=== PATIENT | male | born 1935 | race Caucasian/White ===

== ENCOUNTER 2022-10-13 16:02 | Inpatient (IN) | payer MEDICARE, SELFPAY ==
--- NOTE | ~2022-10-13 | XR_ITS ---
EXAMINATION: XR CHEST CLINICAL INFORMATION: Hypoxemia COMPARISON: 10/20/2022 TECHNIQUE: Frontal view of the chest was obtained. FINDINGS: Cardiac leads overlie the chest. The lungs are well expanded. Prominent interstitial markings throughout both lungs with patchy opacity at the right base. This is similar to prior. There is improving left basilar aeration. Small left pleural effusion suspected. No pneumothorax. The cardiomediastinal silhouette is unchanged, with a calcified aorta. XR/XR chest 1V IMPRESSION: Small left pleural effusion suspected. Patchy right basilar opacity with prominent interstitial markings. This could represent edema versus infectious/inflammatory process. Improving aeration at the left base.
--- NOTE | ~2022-10-13 | XR_ITS ---
EXAMINATION: XR CHEST CLINICAL INFORMATION: Shortness of breath COMPARISON: None available. TECHNIQUE: Frontal portable view of the chest was obtained. 5:05 PM FINDINGS: Multifocal patchy bilateral airspace opacities concerning for pneumonia. There is no pleural effusion. No pneumothorax. Heart size is normal. Cardiac mediastinal contours normal. No pulmonary vascular congestion. There are vascular calcifications of thoracic aorta. XR/XR chest 1V IMPRESSION: Multifocal patchy bilateral airspace opacities concerning for pneumonia.
--- NOTE | ~2022-10-13 | XR_ITS ---
EXAMINATION: XR CHEST CLINICAL INFORMATION: Post diuresis COMPARISON: Examination of 7 days previous. TECHNIQUE: Frontal view of the chest was obtained. 0750 hours. FINDINGS: Increased opacities observed right mid to basilar region and left mid to basilar regions since the previous evaluation, suspicious for infiltrates. Patchy opacities previously observed in the upper lobes appear to be improved. Linear atelectatic changes observed in the left midlung peripherally. There appears to be blunting in the left costophrenic angle likely representing an effusion. XR/XR chest 1V IMPRESSION: Increased opacities observed predominantly in the mid to basilar regions bilaterally, suspicious for infiltrates. Upper lobe patchy opacities appear to be improved since the prior evaluation. Linear atelectasis in the left midlung. Probable left effusion.
--- NOTE | ~2022-10-13 | CT_ITS ---
EXAMINATION: CT ANGIOGRAM OF THE CHEST WITH AND WITHOUT CONTRAST (CT PULMONARY ANGIOGRAM FOR PE) CLINICAL INFORMATION: Reason for Exam post covid hypoxia COMPARISON: None available. TECHNIQUE: Prior to contrast administration, noncontrast localization images were obtained. Subsequently, multidetector volumetric imaging was performed from the thoracic inlet to below the diaphragms following the administration of 65 mL Omnipaque 350 intravenous contrast. No contrast reaction reported Sagittal, coronal, and MIP oblique sagittal reformatted images were obtained on the CT workstation, uploaded to PACS, and reviewed. This CT examination was performed using dose optimization techniques as appropriate, variously including the following: *Automated exposure control *Adjustment of mA and/or kV according to patient size (this includes techniques or standardized protocols for targeted exams where dose is matched to indication/reason for exam; i.e. extremities or head) *Use of iterative reconstruction technique Total exam dose-length product 517 mGy-cm FINDINGS: QUALITY OF STUDY/CONTRAST BOLUS: Satisfactory. PULMONARY ARTERIES: There is a small pulmonary embolus seen in the right upper lobe (see moore image). THORACIC AORTA: No aneurysm. LUNG: There is subpleural groundglass change and reticulation seen which may represent infiltrates or possibly chronic interstitial disease. Unfortunately, no old imaging exams are available for comparison. PLEURA: No pleural effusion or pneumothorax. MEDIASTINUM: There is mild cardiac enlargement. No pericardial effusion. No hilar or mediastinal lymphadenopathy. No evidence of septal bowing or right heart strain. CORONARY ARTERY CALCIFICATION: Mild CHEST WALL/AXILLA: No axillary or internal mammary lymphadenopathy. OSSEOUS STRUCTURES: Degenerative changes are present throughout the spine. There is fusion of T4 and T5. UPPER ABDOMEN: Probable hepatic steatosis. There is currently a lithiasis without evidence of cholecystitis. The upper abdomen is otherwise unremarkable. No reflux of contrast into the hepatic veins to suggest elevated right heart pressures. CT/CT angio chest PE protocol IMPRESSION: 1. There is a single small pulmonary embolus present in the right upper lobe with no evidence of right heart strain. 2. Other incidental findings as described above including extensive interstitial disease which may be chronic but an acute infection cannot be entirely excluded as no prior imaging is available.. VTE: positive.
[2022-10-13 16:20] VITALS: BP 128/80; PULSE 104; RESP 28; TEMP 37.8; O2SAT 91; BMI 27.7
[2022-10-13 16:32] VITALS: BP 110/55; PULSE 101; RESP 28; O2SAT 90
--- NOTE | 2022-10-13 16:33 | ED_ITS ---
HPI - SOB/Dyspnea General Chief Complaint: Dyspnea Stated Complaint: SOB, hypoxic in low 80's Time Seen by Provider: 10/13/22 16:33 Source: EMS Mode of arrival: EMS Limitations: altered mental status History of Present Illness HPI Narrative: Patient 87 years old with history of atrial fibrillation not on AC, hypertension hyperlipidemi diagnosed with COVID 19 on 10/06 was admitted at [facility] , DNR DNI came [facility] for hypoxia desaturating to 77% at 3 LPM patient was started on Augmentin and Zithromax yesterday. Patient will baseline dementia and confused patient saturating 91% on non rebreather mask Related Data Home Medications Medication Instructions Recorded Confirmed acetaminophen 500 mg tablet 500 mg PO Q6H PRN Pain 10/13/22 10/13/22 albuterol sulfate 2.5 mg/3 mL 2.5 mg inhalation Q6H PRN 10/13/22 10/13/22 (0.083 %) solution for nebulization Shortness Of Breath amoxicillin 875 mg-potassium 1 tab PO BID PNA 10/13/22 10/13/22 clavulanate 125 mg tablet aspirin 81 mg chewable tablet 81 mg PO DAILY 10/13/22 10/13/22 atorvastatin 10 mg tablet 10 mg PO BEDTIME 10/13/22 10/13/22 azithromycin 250 mg tablet 250 mg PO DAILY 10/13/22 10/13/22 cholecalciferol (vitamin D3) 25 25 mcg PO DAILY 10/13/22 10/13/22 mcg (1,000 unit) tablet duloxetine 40 mg capsule,delayed 40 mg PO DAILY 10/13/22 10/13/22 release ferrous sulfate 325 mg (65 mg 325 mg PO DAILY 10/13/22 10/13/22 iron) tablet levocetirizine 5 mg tablet 5 mg PO QPM 10/13/22 10/13/22 lisinopril 5 mg tablet 5 mg PO DAILY 10/13/22 10/13/22 tamsulosin 0.4 mg capsule 0.4 mg PO BEDTIME 10/13/22 10/13/22 Allergies Allergy/AdvReac Type Severity Reaction Status Date / Time No Known Allergies Allergy Verified 10/13/22 16:34 Review of Systems Review of Systems: Yes Unobtainable due to mental condition PMFSH Past Medical History Medical History Atrial fibrillation BPH (benign prostatic hyperplasia) Essential hypertension Mood disorder Spinal stenosis Social History Social History Advance Directives: No Advance Directives Information Provided: No Physical Exam Vital Signs: Vital Signs: Last Vital Signs Temp 97.9 F 10/13/22 23:24 Pulse 106 H 10/13/22 23:24 Resp 21 H 10/13/22 23:24 BP 143/59 H 10/13/22 23:24 Pulse Ox 96 10/13/22 23:24 O2 Del Method Non-Rebreather Ma sk 10/13/22 23:24 O2 Flow Rate 15 10/13/22 23:24 Oxygen Flow Rate 15 10/13/22 16:20 BMI result Body Mass Index 27.7 Appearance: Lethargic confused on non-rebreather oxygen, Eyes: PERRLA ENT: Pharynx normal. Oral Mucosa moist Neck: Normal inspection. Neck supple. CVS: Normal heart rate and rhythm. Pulses normal. Respiratory: Moderate respiratory distress. Equal air entry bilateral, bilateral diffuse coarse crackles Abdomen: Soft and nontender. Bowel sounds are present, no mass palpable, no CVA tenderness Skin: Skin warm and dry. Normal skin color. Normal skin turgor. Extremities: No lower extremity edema. No calf tenderness Neuro: Lethargic and confused moving all 4 extremities Medications Administered Generic Name Dose Route Start Last Admin Trade Name Freq PRN Reason Stop Dose Admin Enoxaparin Sodium 90 mg 10/13/22 21:00 10/13/22 20:12 Enoxaparin Sodium 100 Mg/Ml Syringe 1 mg/kg (90 mg) 90 mg SUBCUT Administration Q12H ALAN Azithromycin 500 mg/ Sodium 250 mls @ 125 mls/hr 10/13/22 21:00 10/13/22 23:27 Chloride IV Infused Q24H ALAN Infusion Sodium Chloride 3 ml 10/14/22 00:00 10/13/22 23:49 0.9 % Sodium Chloride Flush 3 Ml Syringe IVFLUSH 3 ml QSHIFT ALAN Administration Discontinued Medications Generic Name Dose Route Start Last Admin Trade Name Freq PRN Reason Stop Dose Admin Albuterol/Ipratropium 3 ml 10/13/22 16:38 10/13/22 16:55 Albuterol/Iprat 2.5/0.5mg 3 Ml Ampul.Neb INHALE 10/13/22 16:39 3 ml ONCE ONE Administration Dexamethasone Sodium Phosphate 4 mg 10/13/22 17:58 10/13/22 18:24 Dexamethasone Sod Phosphate 4 Mg/Ml Vial IVPUSH 10/13/22 17:59 4 mg ONCE ONE Administration Ceftriaxone Sodium 1 gm/ 50 mls @ 100 mls/hr 10/13/22 17:58 10/13/22 19:12 Sodium Chloride IV 10/13/22 18:27 Infused ONCE ONE Infusion Iohexol 100 ml 10/13/22 18:51 10/13/22 18:52 Iohexol 350 Mg/Ml 100 Ml Infus..Btl IV 10/13/22 18:52 65 ml ONCE ONE Administration Lorazepam 1 mg 10/13/22 19:39 10/13/22 20:12 Lorazepam 2 Mg/Ml Vial IVPUSH 10/13/22 19:40 1 mg ONCE ONE Administration Olanzapine 5 mg 10/13/22 23:09 10/13/22 23:49 Olanzapine 10 Mg Vial IM 10/13/22 23:10 5 mg STAT STA Administration Medical Decision Making Medical Decision Making [facility] [place] Narrative: Patient with significant hypoxia with recent COVID with multifocal pneumonia CTA chest was done which showed PE likely the cause for proxy patient started on Lovenox given multi spectrum antibiotic Rocephin IV fluids suggestion improved after high-flow patient admitted to medical service of further management Differential Diagnosis Differential Diagnoses: The differential diagnosis associated with the presentation includes CHF/PE/multifocal pneumonia/pneumothorax/pneumonia Admission/Observation Consideration of admission/observation: Escalation of care including admission/observation considered Consult Healthcare Provider Management of the patient was discussed with: Hospitalist Lab Data MDM Lab Attestation statement: I reviewed the patient's lab results. 10/13/22 16:41 10/13/22 16:41 Labs: Lab Results 10/13/22 10/13/22 10/13/22 Range/Units 16:41 16:41 16:41 WBC 11.7 H (4.8-10.8) X10*3/uL RBC 4.87 (4.60-5.80) X10*6/uL Hgb 15.9 (14.0-18.0) g/dl Hct 46.6 (42.0-52.0) % MCV 95.7 (80.0-98.0) fL MCH 32.6 (27.0-33.0) pg MCHC 34.1 (31.0-36.0) g/dl RDW 12.6 (11.0-16.0) % Plt Count 374 (160-400) X10*3/uL MPV 9.7 (9.4-12.4) fL Immature Gran % (Auto) 1.2 H (0.0-0.4) % Neut % (Auto) 87.5 H (45-73) % Lymph % (Auto) 7.9 L (20-40) % [place] % (Auto) 2.6 (2-11) % Eos % (Auto) 0.5 (0-4) % Baso % (Auto) 0.3 (0-2) % Lymph # (Auto) 0.9 L (1.2-4.9) X10*3/uL [place] # (Auto) 0.3 (0.1-1.2) X10*3/uL Eos # (Auto) 0.1 (0.0-0.4) X10*3/uL Baso # (Auto) 0.0 (0.0-0.2) X10*3/uL Abs Immat Gran (auto) 0.14 H (0.00-0.03) X10*3/uL Absolute Neuts (auto) 10.2 H (2.0-8.3) x10*3/uL Absolute Nucleated RBC 0.000 (0.0-0.012) X10*3/uL Nucleated RBC % (auto) 0.0 (0.0-0.2) /100WBC PT (11.1-13.3) SEC INR (0.9-1.1) D-Dimer High Sensitivty NG/ML VBG pH (7.32-7.43) VBG pCO2 mmHg VBG pO2 mmHg VBG HCO3 (22-26) mmol/L VBG O2 Saturation % VBG Base Excess mmol/L Sodium 141 (135-145) mmol/L Potassium 3.6 (3.3-5.1) mmol/L Chloride 103 (96-108) mmol/L Carbon Dioxide 22 (22-29) mmol/L Anion Gap 20 (12-20) BUN 26 H (9-16) mg/dL Creatinine 1.35 (0.5-1.4) mg/dL Estim Creat Clear Calc 42.3 Estimated GFR 50 Random Glucose 118 H (60-115) mg/dL Lactic Acid (0.5-2.0) mmol/L Calcium 10.1 (8.4-10.2) mg/dL Magnesium 1.9 (1.6-2.6) mg/dL Total Bilirubin 1.2 H (0.0-1.0) mg/dL AST 75 H (5-37) U/L ALT 25 (0-40) U/L Alkaline Phosphatase 87 (39-117) U/L Troponin I High Sens 11.5 (<3.5-35.0) ng/L B-Natriuretic Peptide (<100) pg/mL Total Protein 7.5 (6.5-8.0) g/dL Albumin 3.2 L (3.5-5.0) g/dL COVID-19 (PRABHJOT) (Negative) COVID-19 Clin Com 10/13/22 10/13/22 10/13/22 Range/Units 16:41 16:41 17:01 WBC (4.8-10.8) X10*3/uL RBC (4.60-5.80) X10*6/uL Hgb (14.0-18.0) g/dl Hct (42.0-52.0) % MCV (80.0-98.0) fL MCH (27.0-33.0) pg MCHC (31.0-36.0) g/dl RDW (11.0-16.0) % Plt Count (160-400) X10*3/uL MPV (9.4-12.4) fL Immature Gran % (Auto) (0.0-0.4) % Neut % (Auto) (45-73) % Lymph % (Auto) (20-40) % [place] % (Auto) (2-11) % Eos % (Auto) (0-4) % Baso % (Auto) (0-2) % Lymph # (Auto) (1.2-4.9) X10*3/uL [place] # (Auto) (0.1-1.2) X10*3/uL Eos # (Auto) (0.0-0.4) X10*3/uL Baso # (Auto) (0.0-0.2) X10*3/uL Abs Immat Gran (auto) (0.00-0.03) X10*3/uL Absolute Neuts (auto) (2.0-8.3) x10*3/uL Absolute Nucleated RBC (0.0-0.012) X10*3/uL Nucleated RBC % (auto) (0.0-0.2) /100WBC PT (11.1-13.3) SEC INR (0.9-1.1) D-Dimer High Sensitivty NG/ML VBG pH (7.32-7.43) VBG pCO2 mmHg VBG pO2 mmHg VBG HCO3 (22-26) mmol/L VBG O2 Saturation % VBG Base Excess mmol/L Sodium (135-145) mmol/L Potassium (3.3-5.1) mmol/L Chloride (96-108) mmol/L Carbon Dioxide (22-29) mmol/L Anion Gap (12-20) BUN (9-16) mg/dL Creatinine (0.5-1.4) mg/dL Estim Creat Clear Calc Estimated GFR Random Glucose (60-115) mg/dL Lactic Acid 2.5 H* (0.5-2.0) mmol/L Calcium (8.4-10.2) mg/dL Magnesium (1.6-2.6) mg/dL Total Bilirubin (0.0-1.0) mg/dL AST (5-37) U/L ALT (0-40) U/L Alkaline Phosphatase (39-117) U/L Troponin I High Sens (<3.5-35.0) ng/L B-Natriuretic Peptide 97 (<100) pg/mL Total Protein (6.5-8.0) g/dL Albumin (3.5-5.0) g/dL COVID-19 (PRABHJOT) Negative (Negative) COVID-19 Clin Com See Note 10/13/22 10/13/22 10/13/22 Range/Units 17:01 17:02 17:07 WBC (4.8-10.8) X10*3/uL RBC (4.60-5.80) X10*6/uL Hgb (14.0-18.0) g/dl Hct (42.0-52.0) % MCV (80.0-98.0) fL MCH (27.0-33.0) pg MCHC (31.0-36.0) g/dl RDW (11.0-16.0) % Plt Count (160-400) X10*3/uL MPV (9.4-12.4) fL Immature Gran % (Auto) (0.0-0.4) % Neut % (Auto) (45-73) % Lymph % (Auto) (20-40) % [place] % (Auto) (2-11) % Eos % (Auto) (0-4) % Baso % (Auto) (0-2) % Lymph # (Auto) (1.2-4.9) X10*3/uL [place] # (Auto) (0.1-1.2) X10*3/uL Eos # (Auto) (0.0-0.4) X10*3/uL Baso # (Auto) (0.0-0.2) X10*3/uL Abs Immat Gran (auto) (0.00-0.03) X10*3/uL Absolute Neuts (auto) (2.0-8.3) x10*3/uL Absolute Nucleated RBC (0.0-0.012) X10*3/uL Nucleated RBC % (auto) (0.0-0.2) /100WBC PT 16.5 H (11.1-13.3) SEC INR 1.4 H (0.9-1.1) D-Dimer High Sensitivty 1706 NG/ML VBG pH 7.55 H (7.32-7.43) VBG pCO2 25 mmHg VBG pO2 85 mmHg VBG HCO3 22 (22-26) mmol/L VBG O2 Saturation 98.0 % VBG Base Excess 2.1 mmol/L Sodium (135-145) mmol/L Potassium (3.3-5.1) mmol/L Chloride (96-108) mmol/L Carbon Dioxide (22-29) mmol/L Anion Gap (12-20) BUN (9-16) mg/dL Creatinine (0.5-1.4) mg/dL Estim Creat Clear Calc Estimated GFR Random Glucose (60-115) mg/dL Lactic Acid (0.5-2.0) mmol/L Calcium (8.4-10.2) mg/dL Magnesium (1.6-2.6) mg/dL Total Bilirubin (0.0-1.0) mg/dL AST (5-37) U/L ALT (0-40) U/L Alkaline Phosphatase (39-117) U/L Troponin I High Sens (<3.5-35.0) ng/L B-Natriuretic Peptide (<100) pg/mL Total Protein (6.5-8.0) g/dL Albumin (3.5-5.0) g/dL COVID-19 (PRABHJOT) (Negative) COVID-19 Clin Com Independent Interpretation I performed an independent interpretation of an: EKG Interpretation: Atrial fibrillation with ventricular rate of 96 beats per minute LVH left axis deviation no acute ST elevation no acute ischemia Critical Care Time Critical Care Time Critical Care Time: Yes Total Critical Care Time: 65 Attestation: The patient was critically ill with a high probability of imminent or life threatening deterioration. I spent greater than 70 minutes of discontinuous time evaluating the patient,delivering critical care at the bedside, discussing and evaluating pertinent data with consultants. Critical care time does not include time spent performing separately billable procedures or teaching. Total time spent performing critical care was 65 minutes. Discharge Plan Discharge Clinical Impression: Pulmonary embolism, COVID-19, Pneumonia, Acute hypoxemic respiratory failure Patient Disposition: Admitted As Inpatient Interventions: Admission Worksheet (ED) Last Done: 10/13/22 22:27 Discharge Date/Time: 10/13/22 22:28
--- NOTE | 2022-10-13 16:35 | ECG_ITS ---
Test Reason : AFIB Blood Pressure : / mmHG Vent. Rate : 096 BPM Atrial Rate : 000 BPM P-R Int : 000 ms QRS Dur : 126 ms QT Int : 354 ms P-R-T Axes : 000 -38 130 degrees QTc Int : 447 ms Atrial fibrillation with premature ventricular or aberrantly conducted complexes Left axis deviation Non-specific intra-ventricular conduction block T wave abnormality, consider lateral ischemia Abnormal ECG No previous ECGs available Referred By: Kevon Mancera Electronically Signed By:JORGE FAROOQ
[2022-10-13 16:47] LABS: MANUAL DIFF FLAG NO
[2022-10-13 16:54] LABS: Basophils Percent Auto 0.3 % (0-2); Eosinophils Absolute Auto 0.1 X10*3/uL (0.0-0.4); Eosinophils Percent Auto 0.5 % (0-4); Hematocrit 46.6 % (42.0-52.0); Hemoglobin 15.9 g/dl (14.0-18.0); Imm Gran Abs Auto 0.14 X10*3/uL (0.00-0.03); Imm Gran Pct Auto 1.2 % (0.0-0.4); Lymphocytes Absolute Auto 0.9 X10*3/uL (1.2-4.9); Lymphocytes Percent Auto 7.9 % (20-40); Mean Corpuscular HGB Conc 34.1 g/dl (31.0-36.0); Mean Corpuscular Hemoglobin 32.6 pg (27.0-33.0); Mean Corpuscular Volume 95.7 fL (80.0-98.0); Mean Platelet Volume 9.7 fL (9.4-12.4); Monocytes Absolute Auto 0.3 X10*3/uL (0.1-1.2); Monocytes Percent Auto 2.6 % (2-11); Neutrophils Absolute Auto 10.2 x10*3/uL (2.0-8.3); Neutrophils Percent Auto 87.5 % (45-73); Platelet Count 374 X10*3/uL (160-400); Red Blood Count 4.87 X10*6/uL (4.60-5.80); Red Cell Distribution Width 12.6 % (11.0-16.0); White Blood Count 11.7 X10*3/uL (4.8-10.8)
[2022-10-13] MEDS: Albuterol/Iprat 2.5/0.5MG 3 ML AMPUL.NEB INHALE (16:55)
[2022-10-13 16:56] VITALS: PULSE 106; RESP 24; O2SAT 94
[2022-10-13 17:04] LABS: Alanine Aminotransferase 25 U/L (0-40); Albumin Level 3.2 g/dL (3.5-5.0); Alkaline Phosphatase 87 U/L (39-117); Anion Gap 20 (12-20); Aspartate Amino Transferase 75 U/L (5-37); Bilirubin Total 1.2 mg/dL (0.0-1.0); Blood Urea Nitrogen 26 mg/dL (9-16); Calcium 10.1 mg/dL (8.4-10.2); Carbon Dioxide 22 mmol/L (22-29); Chloride 103 mmol/L (96-108); Creatinine Clr Calc Pharmacy 42.3; Estimated Glomerular Filt Rate 50; Glucose Random 118 mg/dL (60-115); Magnesium 1.9 mg/dL (1.6-2.6); Potassium 3.6 mmol/L (3.3-5.1); Sodium 141 mmol/L (135-145); Total Protein 7.5 g/dL (6.5-8.0)
[2022-10-13 17:09] LABS: B Type Natriuretic Peptide 97 pg/mL (<100)
[2022-10-13 17:10] LABS: COVID-19 Test Negative (Negative); IDNOW Serial# 08D9AD1C
[2022-10-13 17:11] LABS: Troponin-I High Sensitivity 11.5 ng/L (<3.5-35.0)
[2022-10-13 17:17] LABS: VBG Base Excess 2.1 mmol/L; VBG HCO3 22 mmol/L (22-26); VBG pCO2 25 mmHg; VBG pH 7.55 (7.32-7.43); VBG pO2 85 mmHg
[2022-10-13 17:18] LABS: Venous Blood Gas Refer to POC result
--- NOTE | 2022-10-13 17:18 | PC.NURSE ---
coming from [facility] s/p covid with increasing dyspnea and low oxygen. iv established, labs drawn and sent. afib on monitor with history of afib. dnr/dni. pt at 99% on non-rebreather respiratory at bedside
[2022-10-13 17:25] LABS: INTERNATIONAL NORM RATIO 1.4 (0.9-1.1); Prothrombin Time 16.5 SEC (11.1-13.3)
[2022-10-13 17:27] LABS: D Dimer High Sensitivity 1706 NG/ML
[2022-10-13 17:34] LABS: Lactic Acid 2.5 mmol/L (0.5-2.0)
--- NOTE | 2022-10-13 17:48 | PHA.MEDREC ---
Pharmacy Consult ? Medication Reconciliation Pharmacy has completed the medication reconciliation. Patient came from [facility] with medication list. Tanisha Aguilar, JakeD
[2022-10-13 18:22] VITALS: BP 125/69; PULSE 96; RESP 24; TEMP 37.4; O2SAT 95
--- NOTE | 2022-10-13 18:22 | PC.NURSE ---
incontinent of urine, linens changed. pt pulling at mask in room, sliding down in the bed. multiple reattempts made for pt to keep mask on.
[2022-10-13] MEDS: dexAMETHasone sod phosphate 4 MG/ML VIAL IVPUSH (18:24)
[2022-10-13] MEDS: cefTRIAXone sodium 1 GM in 0.9 % Sodium Chloride 50 ML IV (18:24)
[2022-10-13] MEDS: iohexoL 350 MG/ML 100 ML INFUS..BTL IV (18:52)
[2022-10-13 19:09] LABS: Reflex Lactate? Lactic Acid Added
[2022-10-13 20:05] VITALS: BP 132/83; PULSE 96; RESP 20; TEMP 36.9; O2SAT 97
--- NOTE | 2022-10-13 20:07 | PM.IMHP ---
History of Present Illness Date of Service: 10/13/22 Chief Complaint: Hypoxia This is a 87-year-old male with pertinent history of atrial fibrillation not on anticoagulation, BPH, essential hypertension, mixed hyperlipidemia who was sent to the emergency department for evaluation of hypoxemia. Patient was admitted with COVID-19 hypoxemia on 10/06 to [facility] and was transferred to skilled nursing for increased weakness. Patient was found to be hypoxemic at skilled nursing and was sent to the ER for further evaluation. Patient is a poor historian and unable to provide any history. History obtained from ER provider and chart review. Patient had a cough and low-grade fever and was started on Augmentin and Zithromax yesterday. He denies any complaints at the time of my evaluation. Does have baseline dementia. Unable to obtain review of systems. Review of Systems Review of Systems: Yes Unobtainable due to mental status [facility] Medical History Atrial fibrillation BPH (benign prostatic hyperplasia) Essential hypertension Mood disorder Spinal stenosis Pertinent family history: Unable to obtain and not significant due to age Social History Advance Directives: No Advance Directives Information Provided: No Meds Allergies Allergy/AdvReac Type Severity Reaction Status Date / Time No Known Allergies Allergy Verified 10/13/22 16:34 Active Medications: Current Medications Acetaminophen (Acetaminophen 325 Mg Tablet) 650 mg PO Q6H PRN PRN Reason: Pain, Mild (Pain Scale 1-3) Enoxaparin Sodium (Enoxaparin Sodium 100 Mg/Ml Syringe) 90 mg 1 mg/kg (90 mg) SUBCUT Q12H [facility] Melatonin (Melatonin 3 Mg Tablet) 6 mg PO BEDTIME PRN PRN Reason: Insomnia Ondansetron HCl (Ondansetron Hcl 4 Mg/2 Ml Vial) 4 mg IVPUSH Q8H PRN PRN Reason: Nausea and Vomiting Pharmacy Consult (Consult Rx Perform Med Rec) 1 each MISCELLANE ONCE PRN PRN Reason: Consult order Sodium Chloride (0.9 % Sodium Chloride Flush 3 Ml Syringe) 3 ml IVFLUSH QSHIFT [facility] Home Medications Medication Instructions Recorded Confirmed Last Taken Type acetaminophen 500 mg tablet 500 mg PO Q6H PRN Pain 10/13/22 10/13/22 10/08/22 History albuterol sulfate 2.5 mg/3 mL 2.5 mg inhalation Q6H PRN 10/13/22 10/13/22 Unknown History (0.083 %) solution for nebulization Shortness Of Breath amoxicillin 875 mg-potassium 1 tab PO BID PNA 10/13/22 10/13/22 10/13/22 History clavulanate 125 mg tablet aspirin 81 mg chewable tablet 81 mg PO DAILY 10/13/22 10/13/22 10/13/22 History atorvastatin 10 mg tablet 10 mg PO BEDTIME 10/13/22 10/13/22 10/12/22 History azithromycin 250 mg tablet 250 mg PO DAILY 10/13/22 10/13/22 Unknown History cholecalciferol (vitamin D3) 25 25 mcg PO DAILY 10/13/22 10/13/22 10/13/22 History mcg (1,000 unit) tablet duloxetine 40 mg capsule,delayed 40 mg PO DAILY 10/13/22 10/13/22 10/13/22 History release ferrous sulfate 325 mg (65 mg 325 mg PO DAILY 10/13/22 10/13/22 10/13/22 History iron) tablet levocetirizine 5 mg tablet 5 mg PO QPM 10/13/22 10/13/22 10/12/22 History lisinopril 5 mg tablet 5 mg PO DAILY 10/13/22 10/13/22 10/13/22 History tamsulosin 0.4 mg capsule 0.4 mg PO BEDTIME 10/13/22 10/13/22 10/12/22 History Physical Exam Vital Signs and Narrative: Vital Signs: Last Vital Signs Temp 98.4 F 10/13/22 20:05 Pulse 96 10/13/22 20:05 Resp 20 10/13/22 20:05 BP 132/83 10/13/22 20:05 Pulse Ox 97 10/13/22 20:05 O2 Del Method Oxymask 10/13/22 20:05 O2 Flow Rate 15 10/13/22 20:05 Oxygen Flow Rate 10/13/22 16:20 BMI result Body Mass Index 27.7 Elderly male lying in bed in mild distress on supplemental oxygen Neck supple, no JVD Irregularly irregular, S1-S2 heard Bilateral crackles Abdomen soft nontender, no guarding, no rigidity Patient is awake, alert and oriented to self, disoriented to place, time and person ; no focal motor deficit Psych: Normal mood Results Labs 10/13/22 16:41 10/13/22 16:41 Labs: Laboratory Results - last 24 hr 10/13/22 10/13/22 10/13/22 16:41 16:41 16:41 MCV 95.7 MCH 32.6 MCHC 34.1 RDW 12.6 Plt Count 374 MPV 9.7 Immature Gran % (Auto) 1.2 H Neut % (Auto) 87.5 H Lymph % (Auto) 7.9 L [place] % (Auto) 2.6 Eos % (Auto) 0.5 Baso % (Auto) 0.3 Lymph # (Auto) 0.9 L [place] # (Auto) 0.3 Eos # (Auto) 0.1 Baso # (Auto) 0.0 Abs Immat Gran (auto) 0.14 H Absolute Neuts (auto) 10.2 H Absolute Nucleated RBC 0.000 Nucleated RBC % (auto) 0.0 PT INR D-Dimer High Sensitivty VBG pH VBG pCO2 VBG pO2 VBG HCO3 VBG O2 Saturation VBG Base Excess Anion Gap 20 Estim Creat Clear Calc 42.3 Estimated GFR 50 Random Glucose 118 H Lactic Acid Calcium 10.1 Magnesium 1.9 Total Bilirubin 1.2 H AST 75 H ALT 25 Alkaline Phosphatase 87 B-Natriuretic Peptide Total Protein 7.5 Albumin 3.2 L COVID-19 (PRABHJOT) Negative COVID-19 Clin Com See Note 10/13/22 10/13/22 10/13/22 16:41 17:01 17:01 MCV MCH MCHC RDW Plt Count MPV Immature Gran % (Auto) Neut % (Auto) Lymph % (Auto) [place] % (Auto) Eos % (Auto) Baso % (Auto) Lymph # (Auto) [place] # (Auto) Eos # (Auto) Baso # (Auto) Abs Immat Gran (auto) Absolute Neuts (auto) Absolute Nucleated RBC Nucleated RBC % (auto) PT INR D-Dimer High Sensitivty 1706 VBG pH VBG pCO2 VBG pO2 VBG HCO3 VBG O2 Saturation VBG Base Excess Anion Gap Estim Creat Clear Calc Estimated GFR Random Glucose Lactic Acid 2.5 H* Calcium Magnesium Total Bilirubin AST ALT Alkaline Phosphatase B-Natriuretic Peptide 97 Total Protein Albumin COVID-19 (PRABHJOT) COVID-19 Clin Com 10/13/22 10/13/22 17:02 17:07 MCV MCH MCHC RDW Plt Count MPV Immature Gran % (Auto) Neut % (Auto) Lymph % (Auto) [place] % (Auto) Eos % (Auto) Baso % (Auto) Lymph # (Auto) [place] # (Auto) Eos # (Auto) Baso # (Auto) Abs Immat Gran (auto) Absolute Neuts (auto) Absolute Nucleated RBC Nucleated RBC % (auto) PT 16.5 H INR 1.4 H D-Dimer High Sensitivty VBG pH 7.55 H VBG pCO2 25 VBG pO2 85 VBG HCO3 22 VBG O2 Saturation 98.0 VBG Base Excess 2.1 Anion Gap Estim Creat Clear Calc Estimated GFR Random Glucose Lactic Acid Calcium Magnesium Total Bilirubin AST ALT Alkaline Phosphatase B-Natriuretic Peptide Total Protein Albumin COVID-19 (PRABHJOT) COVID-19 Clin Com Imaging Radiologist's Impressions: Impressions Chest X-Ray 10/13/22 17:15 IMPRESSION: Multifocal patchy bilateral airspace opacities concerning for pneumonia. Chest CTA 10/13/22 19:01 IMPRESSION: 1. There is a single small pulmonary embolus present in the right upper lobe with no evidence of right heart strain. 2. Other incidental findings as described above including extensive interstitial disease which may be chronic but an acute infection cannot be entirely excluded as no prior imaging is available.. VTE: positive. Assessment and Plan (1) Hypoxia: Status: Acute Plan This is a 87-year-old male with pertinent history of atrial fibrillation not on anticoagulation, BPH, essential hypertension, mixed hyperlipidemia who was sent to the emergency department for evaluation of hypoxemia. #. Acute hypoxemic respiratory failure due to acute non massive PE and CAP: Will admit patient with supplemental oxygen. Initiating therapeutic Lovenox. Initiating empiric antibiotics for concern of bacterial superinfection in a patient with recent COVID. Obtaining sputum culture and blood culture. Echo pending #. Mood disorder. Continue home mood stabilizers #. Paroxysmal AFib. Rate controlled in the ER. #. BPH: On Flomax #. Essential hypertension. Continue home antihypertensives #. Mixed hyperlipidemia. On statin Med rec pending DVT prophylaxis: Therapeutic Lovenox DNR/DNI Admit as inpatient and will require two night minimum hospital stay for supplemental oxygen, IV Lovenox and IV antibiotics Time Spent With Patient Time: Total time managing care of this patient today ____ minutes. Quality Stroke Does the patient have a stroke diagnosis?: No VTE Prior VTE?: No VTE Risk Level:: Medical - moderate - high VTE Device Contraindication: Treatment Not Indicated VTE Drug Contraindication: N/A - Med Ordered
[2022-10-13] MEDS: Enoxaparin Sodium 100 MG/ML SYRINGE 90 MG SUBCUT (20:12)
[2022-10-13] MEDS: LORazepam 2 MG/ML VIAL 1 MG IVPUSH (20:12)
[2022-10-13 20:24] LABS: ~Lactic Acid-LAB USE ONLY 1.7 mmol/L (0.5-2.0)
[2022-10-13] MEDS: Azithromycin 500 MG in 0.9 % Sodium Chloride 250 ML 125 MG IV (20:27)
--- NOTE | 2022-10-13 21:39 | PC.NURSE ---
patient report was given to klaudia patient will be going with the transporter and the nurse due to patient is on a nonrebreather
--- NOTE | 2022-10-13 23:05 | PC.NURSE ---
Addendum entered by Anjali Salter RN 10/14/22 03:58: At approx 0155 pt noted to be maintaining O2 sat of 88% on 15L NRB. MD made aware of pt condition, with reiteration of R lung PE and pt being s/p covid. No new orders at this time. Will continue with current plan of care. Original Note: Pt to inpatient unit on 15L nonrebreather and right wrist soft restraint from ED. O2 sat 93-94%. Pt agitated and restless - when restraint removed pt attempted to remove mask. Nursing assessment/interventions for Non-Behavioral Restraint form not obtained from ED RN - MD made aware, this RN was told to remove soft restraint and to medicate pt with 5mg Zyprexa IM. Pt medicated per MAY and restraint removed.
[2022-10-13 23:24] VITALS: BP 143/59; PULSE 106; RESP 21; TEMP 36.6; O2SAT 96
[2022-10-13] MEDS: 0.9 % Sodium Chloride Flush 3 ML SYRINGE IVFLUSH (23:49)
[2022-10-13] MEDS: OLANZapine 10 MG VIAL 5 MG IM (23:49)
[2022-10-14] VITALS (9 sets, daily range): BP systolic 107–150; BP diastolic 72–85; PULSE 72–103; RESP 18–91; TEMP 36.1–36.7; O2SAT 90–94; BMI 27.5
--- NOTE | 2022-10-14 05:35 | PC.RT ---
Pt remains on NRB overnight sats 89-94%. ABG ordered, multiple attempts ABG unobtainable. aware.
--- NOTE | 2022-10-14 07:00 | CA_ITS ---
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 The visually estimated ejection fraction is between 15-20%. - The basal inferolateral segment is akinetic. - There is moderately decreased right ventricular systolic function. - The left atrium is moderately dilated. - No obvious valvular pathology seen on this study. Findings Procedure Information Contrast agent, definity, is being given per protocol without apparent complications. The quality of the study was technically difficult, despite the use of contrast, endocardial definition remains poor, and apical images are suboptimal for definitive comment. The study quality is limited by patients body habitus and lung artifact. Left Ventricle Normal left ventricular cavity size. There is normal left ventricular wall thickness. The left ventricular systolic function is severely decreased. The visually estimated ejection fraction is between 15-20%. Regional wall motion abnormalities can not be excluded due to suboptimal endocardial definition. There is severe global hypokinesis. Diastolic function is indeterminate on the basis of available data. Wall Motion Rest Echo Findings The basal inferolateral segment is akinetic. Right Ventricle The right ventricle was not well visualized. Mildly increased right ventricular cavity size. There is moderately decreased right ventricular systolic function. Atria The left atrium is moderately dilated. The right atrium was not well visualized. Aortic Valve There is a normal trileaflet aortic valve. There is mild calcification of the aortic valve. There is no aortic valve stenosis. There is mild aortic valve regurgitation. Mitral Valve The mitral valve appears normal. There is mild mitral valve regurgitation. There is no mitral valve stenosis. Pulmonic Valve The pulmonic valve is likely normal. Tricuspid Valve Normal tricuspid valve structure. There is mild tricuspid valve regurgitation. Great Vessels The asc aorta is normal in size. Venous The inferior vena cava is normal in size and collapses greater than 50% with inspiration. Pericardium/Pleural There is no evidence of pericardial effusion. Prior Study Comparison No prior study available for comparison. Recommendations, Care & Conclusions No obvious valvular pathology seen on this study. Measurements 2D Linear Measurements IVSd: 0.99 0.6-0.9/0.6-1.0 cm LVIDd: 5.30 3.9-5.3/4.2-5.9 cm LVIDd Index: 2.48 2.4-3.2/2.2-3.1 cm/m2 LVIDs: 4.80 2.0-3.6 cm LVPWd: 0.81 0.7-1.1 cm LA Diam: 4.70 2.7-3.8/3.0-4.0 cm LAIDs Index: 2.20 1.5-2.3 cm/m2 LV Mass: 216.92 67-162/88-224 g LV Mass Index: 101.37 43-95/49-115 g/m2 LVOT Diam: 2.40 3.0+(-)1.3 cm Mitral Valve MV Pk E: 0.46 Aortic Valve AoV Pk Clifton: 0.79 AoV Pk Grad: 2.00 GISSELLE: 3.73 LVOT LVOT Pk Clifton: 0.65 LVOT Mn Clifton: 0.45 LVOT VTI: 0.11 LVOT Pk Grad: 2.00 LVOT Mn Grad: 1.00 LVOT Diam: 2.40 LVOT Area: 4.52 Diastolic Function MV Pk E: 0.46 Right Ventricle TAPSE (mm): 9.10 Tricuspid Valve TR Pk Clifton: 2.78 TR Pk Grad: 31.00 RA Press: 3.00 RVSP: 34.00 Great Vessels Aorta Sinus of Valsalva: 3.90 2.0-3.5 cm Ao Asc: 3.80 2.1-3.4 cm Pulmonary Valve PV Pk Clifton: 0.94 Peak PV Grad: 4.00 Updated in Other Vendor System with Status of Final Sudheer Thomason MD electronically signed on 10/14/2022 11:19:22 AM with status of Final
[2022-10-14 07:52] LABS: MANUAL DIFF FLAG NO
[2022-10-14 07:56] LABS: Venous Blood Gas Refer to POC result
[2022-10-14 07:57] LABS: Basophils Percent Auto 0.1 % (0-2); Eosinophils Percent Auto 0.1 % (0-4); Hematocrit 48.5 % (42.0-52.0); Hemoglobin 16.2 g/dl (14.0-18.0); Imm Gran Abs Auto 0.11 X10*3/uL (0.00-0.03); Imm Gran Pct Auto 0.8 % (0.0-0.4); Lymphocytes Percent Auto 7.3 % (20-40); Mean Corpuscular HGB Conc 33.4 g/dl (31.0-36.0); Mean Corpuscular Hemoglobin 32.7 pg (27.0-33.0); Monocytes Absolute Auto 0.3 X10*3/uL (0.1-1.2); Neutrophils Absolute Auto 12.8 x10*3/uL (2.0-8.3); Neutrophils Percent Auto 89.7 % (45-73); Platelet Count 330 X10*3/uL (160-400); Red Blood Count 4.95 X10*6/uL (4.60-5.80); Red Cell Distribution Width 12.7 % (11.0-16.0); White Blood Count 14.2 X10*3/uL (4.8-10.8)
[2022-10-14 07:58] LABS: VBG Base Excess -2.8 mmol/L; VBG HCO3 23 mmol/L (22-26); VBG pCO2 46 mmHg; VBG pH 7.31 (7.32-7.43); VBG pO2 63 mmHg
[2022-10-14 08:12] LABS: Anion Gap 17 (12-20); Blood Urea Nitrogen 23 mg/dL (9-16); Calcium 9.5 mg/dL (8.4-10.2); Carbon Dioxide 22 mmol/L (22-29); Chloride 106 mmol/L (96-108); Creatinine Clr Calc Pharmacy 51.4; Estimated Glomerular Filt Rate > 60; Glucose Random 114 mg/dL (60-115); Potassium 4.1 mmol/L (3.3-5.1); Sodium 141 mmol/L (135-145)
[2022-10-14] MEDS: methylPREDNISolone Sod Succ 125 MG/2 ML VIAL 60 MG IVPUSH ×2 (09:17→21:46)
[2022-10-14] MEDS: 0.9 % Sodium Chloride Flush 3 ML SYRINGE IVFLUSH (09:18)
--- NOTE | 2022-10-14 09:35 | MHC.CM.PN ---
Addendum entered by Azucena Bridges 10/14/22 13:56: Pts and son (both HCP's) met with this CM, pts son reports that [facility] will not hold the bed without a payment of $450/day, so he is not a bed hold. Pts family report that they spoke with MD and plan for pt is that if he does not improve, they would like to keep him comfortable (CLOCK AND WATCH HANDS DIPPER) and do not want extreme measures taken, stating that he would not have wanted that. Pts son also has a with advanced Alzheimer's disease who needs around the clock care. Emotional support provided to pts son and . Pt remains on hi-flow O2 and is obtunded. CM will continue to follow. Addendum entered by Azucena Bridges 10/14/22 10:13: Copy of HCP received and now on file. Original Note: IMM 10/14. Pt admitted with dx: hypoxia. Pt came here from [facility], he was there for STR. Prior to being at [facility], pt was at [facility], and prior to that pt was living at home with his Becky. Pt is a poor historian with baseline dementia, so intake done with pts Becky ([phone]), who was not aware that her was at [facility] prior to this CM's phone call. Becky reports that her has significantly declined in the past 2 weeks since having covid/pneumonia. Becky reports that her was using a walker 2 weeks ago and is now unable to walk, needing a wheelchair. Becky states she was very hopeful that she could bring her home after STR at [facility], but is realizing that she cannot take care of his needs with his recent and rapid decline. Becky states she will be looking for LTC for her (and would like him in a facility close to her in [place]. Becky states the pt has a HCP on file at his PCP's office, this CM called to request a copy be faxed to [facility]. PCP: Eulalio Mcdermott ([facility]) Covid vax: x 3
--- NOTE | 2022-10-14 12:26 | HO.PM.IMPN ---
Subjective Subjective Date of Service: 10/14/22 Interval History: obtunded Review of Systems Review of Systems: Yes Unobtainable due to mental condition Physical Exam Vital Signs: Vital Signs: Last Vital Signs Temp 98.0 F 10/14/22 10:57 Pulse 90 10/14/22 10:57 Resp 20 10/14/22 10:57 BP 141/80 H 10/14/22 10:57 Pulse Ox 94 10/14/22 10:57 O2 Del Method Non-Rebreather Ma 10/14/22 10:57 O2 Flow Rate 15 10/14/22 10:57 Oxygen Flow Rate 15 10/13/22 16:20 BMI result Body Mass Index 27.5 ill appearing, obtunded, tachypneic, accessory muscle used, crackles bilateral Objective Data Active Medications Acetaminophen (Acetaminophen 325 Mg Tablet) 650 mg PO Q6H PRN PRN Reason: Pain, Mild (Pain Scale 1-3) Aspirin (Aspirin 81 Mg Tab.Chew) 81 mg PO DAILY [facility] Last Admin: 10/14/22 09:19 Dose: Not Given Documented By: LOREE Non-Admin Reason: pt. too tired Atorvastatin Calcium (Atorvastatin Calcium 10 Mg Tablet) 10 mg PO BEDTIME [facility] Duloxetine HCl (Duloxetine Hcl 20 Mg Capsule.) 40 mg PO DAILY [facility] Last Admin: 10/14/22 09:19 Dose: Not Given Documented By: LOREE Non-Admin Reason: pt. too tired Enoxaparin Sodium (Enoxaparin Sodium 100 Mg/Ml Syringe) 90 mg 1 mg/kg (90 mg) SUBCUT Q12H [facility] Ferrous Sulfate (Ferrous Sulfate 324 Mg Tablet.) 325 mg PO DAILY [facility] Last Admin: 10/14/22 09:19 Dose: Not Given Documented By: LOREE Non-Admin Reason: pt. too tired Ceftriaxone Sodium 1 gm/ (Sodium Chloride) 50 mls @ 100 mls/hr IV Q24H [facility] Azithromycin 500 mg/ Sodium (Chloride) 250 mls @ 125 mls/hr IV Q24H [facility] Last Infusion: 10/13/22 23:27 Dose: 0 mls/hr Documented By: ZEENAT Lisinopril (Lisinopril 5 Mg Tablet) 5 mg PO DAILY [facility]; Protocol Last Admin: 10/14/22 09:19 Dose: Not Given Documented By: LOREE Non-Admin Reason: pt. too tired Melatonin (Melatonin 3 Mg Tablet) 6 mg PO BEDTIME PRN PRN Reason: Insomnia Methylprednisolone Sodium Succinate (Methylprednisolone Sod Succ 125 Mg/2 Ml Vial) 60 mg IVPUSH BID [facility] Last Admin: 10/14/22 09:17 Dose: 60 mg Documented By: LOREE Ondansetron HCl (Ondansetron Hcl 4 Mg/2 Ml Vial) 4 mg IVPUSH Q8H PRN PRN Reason: Nausea and Vomiting Pharmacy Consult (Consult Rx Perform Med Rec) 1 each MISCELLANE ONCE PRN PRN Reason: Consult order Sodium Chloride (0.9 % Sodium Chloride Flush 3 Ml Syringe) 3 ml IVFLUSH QSHIFT [facility] Last Admin: 10/14/22 09:18 Dose: 3 ml Documented By: LOREE Tamsulosin HCl (Tamsulosin Hcl 0.4 Mg Capsule) 0.4 mg PO BEDTIME [facility] Labs 10/14/22 07:45 10/14/22 07:45 Labs: Laboratory Results - last 24 hr 10/13/22 10/13/22 10/13/22 16:41 16:41 16:41 MCV 95.7 MCH 32.6 MCHC 34.1 RDW 12.6 Plt Count 374 MPV 9.7 Immature Gran % (Auto) 1.2 H Neut % (Auto) 87.5 H Lymph % (Auto) 7.9 L [place] % (Auto) 2.6 Eos % (Auto) 0.5 Baso % (Auto) 0.3 Lymph # (Auto) 0.9 L [place] # (Auto) 0.3 Eos # (Auto) 0.1 Baso # (Auto) 0.0 Abs Immat Gran (auto) 0.14 H Absolute Neuts (auto) 10.2 H Absolute Nucleated RBC 0.000 Nucleated RBC % (auto) 0.0 PT INR D-Dimer High Sensitivty VBG pH VBG pCO2 VBG pO2 VBG HCO3 VBG O2 Saturation VBG Base Excess Anion Gap 20 Estim Creat Clear Calc 42.3 Estimated GFR 50 Random Glucose 118 H Lactic Acid Lactic Acid F/U @ 2Hr Calcium 10.1 Magnesium 1.9 Total Bilirubin 1.2 H AST 75 H ALT 25 Alkaline Phosphatase 87 B-Natriuretic Peptide Total Protein 7.5 Albumin 3.2 L COVID-19 (PRABHJOT) Negative COVID-19 [employer] Com See Note 10/13/22 10/13/22 10/13/22 16:41 17:01 17:01 MCV MCH MCHC RDW Plt Count MPV Immature Gran % (Auto) Neut % (Auto) Lymph % (Auto) [place] % (Auto) Eos % (Auto) Baso % (Auto) Lymph # (Auto) [place] # (Auto) Eos # (Auto) Baso # (Auto) Abs Immat Gran (auto) Absolute Neuts (auto) Absolute Nucleated RBC Nucleated RBC % (auto) PT INR D-Dimer High Sensitivty 1706 VBG pH VBG pCO2 VBG pO2 VBG HCO3 VBG O2 Saturation VBG Base Excess Anion Gap Estim Creat Clear Calc Estimated GFR Random Glucose Lactic Acid 2.5 H* Lactic Acid F/U @ 2Hr Calcium Magnesium Total Bilirubin AST ALT Alkaline Phosphatase B-Natriuretic Peptide 97 Total Protein Albumin COVID-19 (PRABHJOT) COVID-19 [employer] 10/13/22 10/13/22 10/13/22 17:02 17:07 20:09 MCV MCH MCHC RDW Plt Count MPV Immature Gran % (Auto) Neut % (Auto) Lymph % (Auto) [place] % (Auto) Eos % (Auto) Baso % (Auto) Lymph # (Auto) [place] # (Auto) Eos # (Auto) Baso # (Auto) Abs Immat Gran (auto) Absolute Neuts (auto) Absolute Nucleated RBC Nucleated RBC % (auto) PT 16.5 H INR 1.4 H D-Dimer High Sensitivty VBG pH 7.55 H VBG pCO2 25 VBG pO2 85 VBG HCO3 22 VBG O2 Saturation 98.0 VBG Base Excess 2.1 Anion Gap Estim Creat Clear Calc Estimated GFR Random Glucose Lactic Acid Lactic Acid F/U @ 2Hr 1.7 Calcium Magnesium Total Bilirubin AST ALT Alkaline Phosphatase B-Natriuretic Peptide Total Protein Albumin COVID-19 (PRABHJOT) [employer] 10/14/22 10/14/22 10/14/22 07:45 07:45 07:51 MCV 98.0 MCH 32.7 MCHC 33.4 RDW 12.7 Plt Count 330 MPV 10.0 Immature Gran % (Auto) 0.8 H Neut % (Auto) 89.7 H Lymph % (Auto) 7.3 L [place] % (Auto) 2.0 Eos % (Auto) 0.1 Baso % (Auto) 0.1 Lymph # (Auto) 1.0 L [place] # (Auto) 0.3 Eos # (Auto) 0.0 Baso # (Auto) 0.0 Abs Immat Gran (auto) 0.11 H Absolute Neuts (auto) 12.8 H Absolute Nucleated RBC 0.000 Nucleated RBC % (auto) 0.0 PT INR D-Dimer High Sensitivty VBG pH 7.31 L VBG pCO2 46 VBG pO2 63 VBG HCO3 23 VBG O2 Saturation 86.0 VBG Base Excess -2.8 Anion Gap 17 Estim Creat Clear Calc 51.4 Estimated GFR > 60 Random Glucose 114 Lactic Acid Lactic Acid F/U @ 2Hr Calcium 9.5 Magnesium Total Bilirubin AST ALT Alkaline Phosphatase B-Natriuretic Peptide Total Protein Albumin COVID-19 (PRABHJOT) COVID-19 Clin Com Assessment and Plan (1) Hypoxia: Status: Acute Plan 87M PMH paroxysmal afib, bph, htn, hld, presented with sob acute metabolic encephalopathy and acute hypoxic respiratory failure due to acute on chronic aspiration pneumonitis with superimposed bacterial pneumonia as well as recent covid 19. rocephin, azithro initiating high flow d/w and son at bedside, if continues to decline would not want further escalation and will consider CONSULTING SME acute small right upper lobe PE doubt significantly contributing to hypoxia therapeutic lovenox paroxysmal afib, htn, hld, bph holding oral meds while obtunded DNR/DNI reason for continued hospitalization:hypoxia Time Spent With Patient Time: Total time managing care of this patient today ____ minutes. Quality Stroke Does the patient have a stroke diagnosis?: No VTE Prior VTE?: No VTE Risk Level:: Medical - moderate - high VTE Device Contraindication: Treatment Not Indicated VTE Drug Contraindication: N/A - Med Ordered
[2022-10-14] MEDS: Enoxaparin Sodium 100 MG/ML SYRINGE 90 MG SUBCUT (13:20)
[2022-10-14] MEDS: cefTRIAXone sodium 1 GM in 0.9 % Sodium Chloride 50 ML IV (17:53)
[2022-10-14] MEDS: Tamsulosin HCL 0.4 MG CAPSULE PO (21:41)
[2022-10-14] MEDS: Atorvastatin Calcium 10 MG TABLET PO (21:41)
[2022-10-14] MEDS: Azithromycin 500 MG in 0.9 % Sodium Chloride 250 ML 125 MG IV (21:47)
[2022-10-15] VITALS (11 sets, daily range): BP systolic 101–126; BP diastolic 59–79; PULSE 71–101; RESP 12–24; TEMP 35.9–36.5; O2SAT 87–91; BMI 38.9
[2022-10-15] MEDS: 0.9 % Sodium Chloride Flush 3 ML SYRINGE IVFLUSH ×4 (00:39→19:49)
[2022-10-15] MEDS: Enoxaparin Sodium 100 MG/ML SYRINGE 90 MG SUBCUT ×2 (00:39→16:37)
[2022-10-15] MEDS: OLANZapine 10 MG VIAL 5 MG IM (01:40)
[2022-10-15] MEDS: Ferrous Sulfate 324 MG TABLET.DR 325 MG PO (08:39)
[2022-10-15] MEDS: DULoxetine HCl 20 MG CAPSULE.DR 40 MG PO (08:39)
[2022-10-15] MEDS: Aspirin 81 MG TAB.CHEW PO (08:41)
[2022-10-15] MEDS: methylPREDNISolone Sod Succ 125 MG/2 ML VIAL 60 MG IVPUSH ×2 (08:41→19:49)
[2022-10-15] MEDS: lisinopriL 5 MG TABLET PO (08:41)
[2022-10-15 09:23] LABS: Hematocrit 44.6 % (42.0-52.0); Mean Corpuscular HGB Conc 33.6 g/dl (31.0-36.0); Mean Corpuscular Hemoglobin 32.5 pg (27.0-33.0); Mean Corpuscular Volume 96.7 fL (80.0-98.0); Mean Platelet Volume 10.6 fL (9.4-12.4); Platelet Count 372 X10*3/uL (160-400); Red Blood Count 4.61 X10*6/uL (4.60-5.80); Red Cell Distribution Width 12.6 % (11.0-16.0)
[2022-10-15 10:18] LABS: Anion Gap 18 (12-20); Blood Urea Nitrogen 38 mg/dL (9-16); Calcium 9.4 mg/dL (8.4-10.2); Carbon Dioxide 20 mmol/L (22-29); Chloride 108 mmol/L (96-108); Creatinine Clr Calc Pharmacy 49.2; Estimated Glomerular Filt Rate 60; Glucose Fasting 127 mg/dL (60-99); Potassium 3.9 mmol/L (3.3-5.1); Sodium 142 mmol/L (135-145)
--- NOTE | 2022-10-15 12:15 | P.PNIM_ITS ---
Subjective Subjective Date of Service: 10/15/22 Interval History: unable to answer Physical Exam Vital Signs: Vital Signs: Last Vital Signs Temp 96.9 F 10/15/22 11:05 Pulse 100 10/15/22 11:05 Resp 20 10/15/22 12:05 BP 124/75 10/15/22 11:05 Pulse Ox 90 L 10/15/22 11:05 O2 Del Method Nasal Cannula, Hi gh Flow Nasal Michael bve 10/15/22 11:05 O2 Flow Rate 15 10/15/22 11:05 FiO2 100 10/15/22 07:58 Oxygen Flow Rate 15 10/13/22 16:20 BMI result Body Mass Index 27.5 ill appearing, obtunded, tachypneic, accessory muscle used, crackles bilateral Objective Data Active Medications Acetaminophen (Acetaminophen 325 Mg Tablet) 650 mg PO Q6H PRN PRN Reason: Pain, Mild (Pain Scale 1-3) Aspirin (Aspirin 81 Mg Tab.Chew) 81 mg PO DAILY [facility] Last Admin: 10/15/22 08:41 Dose: 81 mg Documented By: RONAK Atorvastatin Calcium (Atorvastatin Calcium 10 Mg Tablet) 10 mg PO BEDTIME [facility] Last Admin: 10/14/22 21:41 Dose: 10 mg Documented By: RICKEY Duloxetine HCl (Duloxetine Hcl 20 Mg Capsule.) 40 mg PO DAILY [facility] Last Admin: 10/15/22 08:39 Dose: 40 mg Documented By: RONAK Enoxaparin Sodium (Enoxaparin Sodium 100 Mg/Ml Syringe) 90 mg 1 mg/kg (90 mg) S UBCUT Q12H [facility] Last Admin: 10/15/22 00:39 Dose: 90 mg Documented By: RICKEY Ferrous Sulfate (Ferrous Sulfate 324 Mg Tablet.) 325 mg PO DAILY [facility] Last Admin: 10/15/22 08:39 Dose: 325 mg Documented By: RONAK Ceftriaxone Sodium 1 gm/ (Sodium Chloride) 50 mls @ 100 mls/hr IV Q24H [facility] Last Infusion: 10/14/22 21:21 Dose: 0 mls/hr Documented By: PAUL Azithromycin 500 mg/ Sodium (Chloride) 250 mls @ 125 mls/hr IV Q24H [facility] Last Infusion: 10/15/22 00:12 Dose: 0 mls/hr Documented By: RICKEY Lisinopril (Lisinopril 5 Mg Tablet) 5 mg PO DAILY [facility]; Protocol Last Admin: 10/15/22 08:41 Dose: 5 mg Documented By: RONAK Melatonin (Melatonin 3 Mg Tablet) 6 mg PO BEDTIME PRN PRN Reason: Insomnia Methylprednisolone Sodium Succinate (Methylprednisolone Sod Succ 125 Mg/2 Ml Vial) 60 mg IVPUSH BID [facility] Last Admin: 10/15/22 08:41 Dose: 60 mg Documented By: RONAK Ondansetron HCl (Ondansetron Hcl 4 Mg/2 Ml Vial) 4 mg IVPUSH Q8H PRN PRN Reason: Nausea and Vomiting Pharmacy Consult (Consult Rx Perform Med Rec) 1 each MISCELLANE ONCE PRN PRN Reason: Consult order Sodium Chloride (0.9 % Sodium Chloride Flush 3 Ml Syringe) 3 ml IVFLUSH QSHIFT [facility] Last Admin: 10/15/22 08:44 Dose: 3 ml Documented By: RONAK Tamsulosin HCl (Tamsulosin Hcl 0.4 Mg Capsule) 0.4 mg PO BEDTIME [facility] Last Admin: 10/14/22 21:41 Dose: 0.4 mg Documented By: RICKEY Labs 10/15/22 08:31 10/15/22 09:55 Labs: Laboratory Results - last 24 hr 10/15/22 10/15/22 08:31 09:55 MCV 96.7 MCH 32.5 MCHC 33.6 RDW 12.6 Plt Count 372 MPV 10.6 Absolute Nucleated RBC 0.000 Nucleated RBC % (auto) 0.0 Anion Gap 18 Estim Creat Clear Calc 49.2 Estimated GFR 60 Fasting Glucose 127 H Calcium 9.4 Microbiology Microbiology Results: Microbiology 10/13/22 17:01 Blood Culture - Preliminary Blood - Venous No growth after 24 hours. 10/13/22 16:41 Blood Culture - Preliminary Blood - Venous No growth after 24 hours. Assessment and Plan (1) Hypoxia: Status: Acute Plan 87M PMH paroxysmal afib, bph, htn, hld, presented with sob acute metabolic encephalopathy and acute hypoxic respiratory failure due to acute on chronic aspiration pneumonitis with superimposed bacterial pneumonia as well as recent covid 19. 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 Quality Stroke Does the patient have a stroke diagnosis?: No VTE Prior VTE?: No VTE Risk Level:: Medical - moderate - high VTE Device Contraindication: Treatment Not Indicated VTE Drug Contraindication: N/A - Med Ordered
--- NOTE | 2022-10-15 12:43 | P.CDIM_ITS ---
PROVIDER RESPONSE TEXT: To clarify, the appropriate diagnosis supported by the clinical indicators: Other (explain): not sepsis QUERY TEXT: PHYSICIAN'S DOCUMENTATION REQUEST Date of Query: 10/15/2022 12:18 PM EDT Patient Name: Mohsen Arreola Admit Date: 10/14/2022 Dear Дмитрий Ferro, A review of the medical record indicates additional documentation may be needed. Please review below and update the documentation accordingly. Clinical Indicators: WBC 11.7 17.0 HR 104 106 RR 28 24 LA 2.5 Temp 100.0 Lethargic, tachypneic, using accessory muscles to breath, hypoxic, recent covid infection. Oxygen, Azithromycin, Ceftriaxone, IV fluids. Acute metabolic encephalopathy, acute hypoxic respiratory failure due to acute on chronic aspiration pneumonitis with superimposed bacterial pneumonia. 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 Please clarify which, if any, of the following is the most likely etiology of the above symptoms and treatment rendered: Sepsis SIRS Localized infection only, without systemic illness Indicate the site/source, such as UTI, pneumonia, etc. Severe sepsis Other (explain)Clinically unable to determine (explain)Thank you, Jodie Vyas, CCS, CDIS Use of terms such as suspected, likely, concern for, or probable (associated with a specific diagnosi s that is being evaluated, monitored, or treated as if it exists) are acceptable and can be coded in the inpatient se tting, when documented at the time of discharge. Please use your independent medical judgment in providing your response. THIS QUERY IS PART OF THE PERMANENT MEDICAL RECORD
[2022-10-15] MEDS: cefTRIAXone sodium 1 GM in 0.9 % Sodium Chloride 50 ML IV (16:38)
[2022-10-15] MEDS: Atorvastatin Calcium 10 MG TABLET PO (19:49)
[2022-10-15] MEDS: Tamsulosin HCL 0.4 MG CAPSULE PO (19:49)
[2022-10-15] MEDS: Azithromycin 500 MG in 0.9 % Sodium Chloride 250 ML 125 MG IV (19:53)
[2022-10-16] VITALS (12 sets, daily range): BP systolic 111–143; BP diastolic 59–82; PULSE 79–97; RESP 12–20; TEMP 36–37; O2SAT 89–95
[2022-10-16] MEDS: OLANZapine 10 MG VIAL 5 MG IM (00:22)
[2022-10-16] MEDS: Enoxaparin Sodium 100 MG/ML SYRINGE 90 MG SUBCUT ×3 (00:24→23:59)
[2022-10-16 08:29] LABS: Hematocrit 44.3 % (42.0-52.0); Mean Corpuscular HGB Conc 33.9 g/dl (31.0-36.0); Mean Corpuscular Volume 97.4 fL (80.0-98.0); Mean Platelet Volume 10.3 fL (9.4-12.4); Platelet Count 384 X10*3/uL (160-400); Red Blood Count 4.55 X10*6/uL (4.60-5.80); Red Cell Distribution Width 12.8 % (11.0-16.0); White Blood Count 14.9 X10*3/uL (4.8-10.8)
[2022-10-16] MEDS: methylPREDNISolone Sod Succ 125 MG/2 ML VIAL 60 MG IVPUSH ×2 (08:36→20:05)
[2022-10-16] MEDS: DULoxetine HCl 20 MG CAPSULE.DR 40 MG PO (08:38)
[2022-10-16] MEDS: Ferrous Sulfate 324 MG TABLET.DR 325 MG PO (08:38)
[2022-10-16] MEDS: lisinopriL 5 MG TABLET PO (08:39)
[2022-10-16] MEDS: Aspirin 81 MG TAB.CHEW PO (08:39)
[2022-10-16] MEDS: 0.9 % Sodium Chloride Flush 3 ML SYRINGE IVFLUSH ×3 (08:39→20:05)
[2022-10-16 08:56] LABS: Anion Gap 16 (12-20); Blood Urea Nitrogen 44 mg/dL (9-16); Calcium 9.1 mg/dL (8.4-10.2); Carbon Dioxide 21 mmol/L (22-29); Chloride 110 mmol/L (96-108); Creatinine Clr Calc Pharmacy 67.8; Estimated Glomerular Filt Rate > 60; Glucose Fasting 124 mg/dL (60-99); Potassium 3.7 mmol/L (3.3-5.1); Sodium 143 mmol/L (135-145)
--- NOTE | 2022-10-16 09:48 | P.PNIM_ITS ---
Subjective Subjective Date of Service: 10/16/22 Interval History: a bit more alert this am Physical Exam Vital Signs: Vital Signs: Last Vital Signs Temp 96.8 F 10/16/22 07:04 Pulse 83 10/16/22 07:04 Resp 14 10/16/22 07:33 BP 142/82 H 10/16/22 07:04 Pulse Ox 92 10/16/22 07:04 O2 Del Method High Flow Nasal C annula 10/16/22 07:23 O2 Flow Rate 55 10/16/22 07:23 FiO2 100 10/16/22 07:23 Oxygen Flow Rate 15 10/13/22 16:20 BMI result Body Mass Index 38.9 ill appearing, obtunded, tachypneic, accessory muscle used, crackles bilateral Objective Data Active Medications Acetaminophen (Acetaminophen 325 Mg Tablet) 650 mg PO Q6H PRN PRN Reason: Pain, Mild (Pain Scale 1-3) Aspirin (Aspirin 81 Mg Tab.Chew) 81 mg PO DAILY [facility] Last Admin: 10/16/22 08:39 Dose: 81 mg Documented By: RONAK Atorvastatin Calcium (Atorvastatin Calcium 10 Mg Tablet) 10 mg PO BEDTIME [facility] Last Admin: 10/15/22 19:49 Dose: 10 mg Documented By: RICKEY Duloxetine HCl (Duloxetine Hcl 20 Mg Capsule.) 40 mg PO DAILY [facility] Last Admin: 10/16/22 08:38 Dose: 40 mg Documented By: RONAK Enoxaparin Sodium (Enoxaparin Sodium 100 Mg/Ml Syringe) 90 mg 1 mg/kg (90 mg) SUBCUT Q12H [facility] Last Admin: 10/16/22 00:24 Dose: 90 mg Documented By: PAUL Ferrous Sulfate (Ferrous Sulfate 324 Mg Tablet.) 325 mg PO DAILY [facility] Last Admin: 10/16/22 08:38 Dose: 325 mg Documented By: RONAK Ceftriaxone Sodium 1 gm/ (Sodium Chloride) 50 mls @ 100 mls/hr IV Q24H [facility] Last Infusion: 10/15/22 19:09 Dose: 0 mls/hr Documented By: RONAK Azithromycin 500 mg/ Sodium (Chloride) 250 mls @ 125 mls/hr IV Q24H [facility] Last Infusion: 10/15/22 22:49 Dose: 0 mls/hr Documented By: RICKEY Lisinopril (Lisinopril 5 Mg Tablet) 5 mg PO DAILY [facility]; Protocol Last Admin: 10/16/22 08:39 Dose: 5 mg Documented By: RONAK Melatonin (Melatonin 3 Mg Tablet) 6 mg PO BEDTIME PRN PRN Reason: Insomnia Methylprednisolone Sodium Succinate (Methylprednisolone Sod Succ 125 Mg/2 Ml Vial) 60 mg IVPUSH BID [facility] Last Admin: 10/16/22 08:36 Dose: 60 mg Documented By: RONAK Olanzapine (Olanzapine 10 Mg Vial) 5 mg IM STAT PRN PRN Reason: anxiety/restlessness Last Admin: 10/16/22 00:22 Dose: 5 mg Documented By: PAUL Ondansetron HCl (Ondansetron Hcl 4 Mg/2 Ml Vial) 4 mg IVPUSH Q8H PRN PRN Reason: Nausea and Vomiting Pharmacy Consult (Consult Rx Perform Med Rec) 1 each MISCELLANE ONCE PRN PRN Reason: Consult order Sodium Chloride (0.9 % Sodium Chloride Flush 3 Ml Syringe) 3 ml IVFLUSH QSHIFT [facility] Last Admin: 10/16/22 08:39 Dose: 3 ml Documented By: RONAK Tamsulosin HCl (Tamsulosin Hcl 0.4 Mg Capsule) 0.4 mg PO BEDTIME [facility] Last Admin: 10/15/22 19:49 Dose: 0.4 mg Documented By: RICKEY Labs 10/16/22 07:38 10/16/22 07:38 Labs: Laboratory Results - last 24 hr 10/15/22 10/16/22 10/16/22 09:55 07:38 07:38 MCV 97.4 MCH 33.0 MCHC 33.9 RDW 12.8 Plt Count 384 MPV 10.3 Absolute Nucleated RBC 0.000 Nucleated RBC % (auto) 0.0 Anion Gap 18 16 Estim Creat Clear Calc 49.2 67.8 Estimated GFR 60 > 60 Fasting Glucose 127 H 124 H Calcium 9.4 9.1 Microbiology Microbiology Results: Microbiology 10/13/22 17:01 Blood Culture - Preliminary Blood - Venous No growth after 48 hours. 10/13/22 16:41 Blood Culture - Preliminary Blood - Venous No growth after 48 hours. Assessment and Plan (1) Hypoxia: Status: Acute Plan 87M PMH paroxysmal afib, bph, htn, hld, presented with sob acute metabolic encephalopathy and acute hypoxic respiratory failure due to acute on chronic aspiration pneumonitis with superimposed bacterial pneumonia as well as recent covid 19. rocephin, azithro, steroids partial NRB + high flow on 10/14/22: d/w and son at bedside, if continues to decline would not want further escalation and will consider SUPERVISOR DRIED YEAST last couple days, stable with sats around 90% on max O2, mental status slightly improved dysphagia TUBE WRAPPER eval acute small right upper lobe PE doubt significantly contributing to hypoxia therapeutic lovenox paroxysmal afib lovenox htn lisinopril hld statin bph flomax DNR/DNI reason for continued hospitalization:hypoxia Time Spent With Patient Time: Total time managing care of this patient today ____ minutes. Quality Stroke Does the patient have a stroke diagnosis?: No VTE Prior VTE?: No VTE Risk Level:: Medical - moderate - high VTE Device Contraindication: Treatment Not Indicated VTE Drug Contraindication: N/A - Med Ordered
--- NOTE | 2022-10-16 10:58 | MHC.SL.SWA ---
Speech Pathologist Impression: Risk of aspiration, oropharyngeal dysphagia Risk of Aspiration Due to: Reduced Cognition Dysphasia Diet Status: START on NDD2/NTL (was on NDD2/thin at [facility]) Liquid Consistency and Strategies for Safe Swallow: Liquid Intake Recommendation: [place] Thick Liquid Intake Strategies: Small Sips No Straws Solid Food Consistency: Dietary Recommendations: Grnd/Mech Altered (NDD2) Additional Modifications to Solid Foods: Recommend START on GROUND/MECH ALTERED (NDD2) solids and NECTAR THICK liquids (NO STRAWS), pills CRUSHED in PUREE. Pt requires total 1:1 assistance feeding, close monitoring of tolerance, and strict aspiration precautions. Diet order updated by PULVERIZER FEEDER. Notified team (MD, RN, RD) of recommendations via [place] Message. Oral Medication Intake: Crushed with Puree Please contact the pharmacy regarding appropriate crushable or liquid drug formulations that are available whenever modified delivery is recommended. Compensatory Strategies and Precautions to be Taken for Safe Swallow: Sitting Upright (90 deg) Double Swallow No Straw Small Bites and Sips Rate of Ingestion Change Oral Check Avoid Specific Foods Supervision While Eating and Drinking for Safe Swallow: Total Assistance (1:1) Foods to Avoid: Dry or sticky textures, hard to chew solids Swallowing Recommended Treatments: Compens. Strategy Educat. Recommendation for Speech: Inpatient Speech Therapy Ncqa Specialist Clinican/Clinical Fellow: No Supervisory Statement: I have reviewed and agree with the student/clinical fellow's documentation: N/A Speech Language Pathologist: Julia Bajwa M.A., CCC-PULVERIZER FEEDER
[2022-10-16] MEDS: cefTRIAXone sodium 1 GM in 0.9 % Sodium Chloride 50 ML IV (17:54)
[2022-10-16] MEDS: Tamsulosin HCL 0.4 MG CAPSULE PO (20:04)
[2022-10-16] MEDS: Atorvastatin Calcium 10 MG TABLET PO (20:04)
[2022-10-16] MEDS: Azithromycin 500 MG in 0.9 % Sodium Chloride 250 ML 125 MG IV (20:05)
[2022-10-17] VITALS (11 sets, daily range): BP systolic 107–153; BP diastolic 60–92; PULSE 74–96; RESP 16–21; TEMP 36.1–36.6; O2SAT 86–96; BMI 27.9
[2022-10-17] MEDS: DULoxetine HCl 20 MG CAPSULE.DR 40 MG PO (09:34)
[2022-10-17] MEDS: Ferrous Sulfate 324 MG TABLET.DR 325 MG PO (09:35)
[2022-10-17] MEDS: Aspirin 81 MG TAB.CHEW PO (09:35)
[2022-10-17] MEDS: methylPREDNISolone Sod Succ 125 MG/2 ML VIAL 60 MG IVPUSH (09:39)
[2022-10-17] MEDS: 0.9 % Sodium Chloride Flush 3 ML SYRINGE IVFLUSH ×2 (09:42→17:10)
[2022-10-17] MEDS: lisinopriL 5 MG TABLET PO (09:42)
--- NOTE | 2022-10-17 10:29 | P.PNIM_ITS ---
Subjective Subjective Date of Service: 10/17/22 Interval History: more alert Physical Exam Vital Signs: Vital Signs: Last Vital Signs Temp 97.8 F 10/17/22 08:00 Pulse 84 10/17/22 08:00 Resp 16 10/17/22 08:00 BP 107/60 10/17/22 08:00 Pulse Ox 86 L 10/17/22 08:00 O2 Del Method High Flow Nasal C annula, Oxymask 10/17/22 08:00 O2 Flow Rate 55 10/17/22 03:19 FiO2 99.8 10/17/22 08:00 Oxygen Flow Rate 15 10/13/22 16:20 BMI result Body Mass Index 27.9 more alert, crackles Objective Data Active Medications Acetaminophen (Acetaminophen 325 Mg Tablet) 650 mg PO Q6H PRN PRN Reason: Pain, Mild (Pain Scale 1-3) Aspirin (Aspirin 81 Mg Tab.Chew) 81 mg PO DAILY [facility] Last Admin: 10/17/22 09:35 Dose: 81 mg Documented By: OLE Atorvastatin Calcium (Atorvastatin Calcium 10 Mg Tablet) 10 mg PO BEDTIME [facility] Last Admin: 10/16/22 20:04 Dose: 10 mg Documented By: ABRAHAN Duloxetine HCl (Duloxetine Hcl 20 Mg Capsule.) 40 mg PO DAILY [facility] Last Admin: 10/17/22 09:34 Dose: 40 mg Documented By: OLE Enoxaparin Sodium (Enoxaparin Sodium 100 Mg/Ml Syringe) 90 mg 1 mg/kg (90 mg) SUBCUT Q12H [facility] Last Admin: 10/16/22 23:59 Dose: 90 mg Documented By: ABRAHAN Ferrous Sulfate (Ferrous Sulfate 324 Mg Tablet.) 325 mg PO DAILY [facility] Last Admin: 10/17/22 09:35 Dose: 325 mg Documented By: OLE Ceftriaxone Sodium 1 gm/ (Sodium Chloride) 50 mls @ 100 mls/hr IV Q24H [facility] Last Infusion: 10/16/22 19:10 Dose: 0 mls/hr Documented By: ABRAHAN Azithromycin 500 mg/ Sodium (Chloride) 250 mls @ 125 mls/hr IV Q24H [facility] Last Infusion: 10/16/22 22:36 Dose: 0 mls/hr Documented By: ABRAHAN Lisinopril (Lisinopril 5 Mg Tablet) 5 mg PO DAILY [facility]; Protocol Last Admin: 10/17/22 09:42 Dose: 5 mg Documented By: OLE Melatonin (Melatonin 3 Mg Tablet) 6 mg PO BEDTIME PRN PRN Reason: Insomnia Methylprednisolone Sodium Succinate (Methylprednisolone Sod Succ 125 Mg/2 Ml Vial) 60 mg IVPUSH BID [facility] Last Admin: 10/17/22 09:39 Dose: 60 mg Documented By: OLE Olanzapine (Olanzapine 10 Mg Vial) 5 mg IM STAT PRN PRN Reason: anxiety/restlessness Last Admin: 10/16/22 00:22 Dose: 5 mg Documented By: PAUL Ondansetron HCl (Ondansetron Hcl 4 Mg/2 Ml Vial) 4 mg IVPUSH Q8H PRN PRN Reason: Nausea and Vomiting Pharmacy Consult (Consult Rx Perform Med Rec) 1 each MISCELLANE ONCE PRN PRN Reason: Consult order Sodium Chloride (0.9 % Sodium Chloride Flush 3 Ml Syringe) 3 ml IVFLUSH QSHIFT [facility] Last Admin: 10/17/22 09:42 Dose: 3 ml Documented By: OLE Tamsulosin HCl (Tamsulosin Hcl 0.4 Mg Capsule) 0.4 mg PO BEDTIME [facility] Last Admin: 10/16/22 20:04 Dose: 0.4 mg Documented By: ABRAHAN Labs 10/16/22 07:38 10/16/22 07:38 Assessment and Plan (1) Hypoxia: Status: Acute Plan 87M PMH paroxysmal afib, bph, htn, hld, presented with sob acute metabolic encephalopathy and acute hypoxic respiratory failure due to acute on chronic aspiration pneumonitis with superimposed bacterial pneumonia as well as recent covid 19. 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 Quality Stroke Does the patient have a stroke diagnosis?: No VTE Prior VTE?: No VTE Risk Level:: Medical - moderate - high VTE Device Contraindication: Treatment Not Indicated VTE Drug Contraindication: N/A - Med Ordered
[2022-10-17] MEDS: cefTRIAXone sodium 1 GM in 0.9 % Sodium Chloride 50 ML IV (17:09)
[2022-10-17] MEDS: Atorvastatin Calcium 10 MG TABLET PO (23:58)
[2022-10-17] MEDS: Tamsulosin HCL 0.4 MG CAPSULE PO (23:58)
[2022-10-17] MEDS: Apixaban 5 MG TABLET PO (23:58)
[2022-10-17] MEDS: Melatonin 3 MG TABLET 6 MG PO (23:59)
[2022-10-18] VITALS (14 sets, daily range): BP systolic 91–148; BP diastolic 62–91; PULSE 80–115; RESP 15–24; TEMP 36–36.5; O2SAT 88–94; BMI 28.0
[2022-10-18] MEDS: 0.9 % Sodium Chloride Flush 3 ML SYRINGE IVFLUSH ×4 (00:10→21:30)
[2022-10-18] MEDS: methylPREDNISolone Sod Succ 125 MG/2 ML VIAL 60 MG IVPUSH ×3 (00:10→21:12)
[2022-10-18] MEDS: Azithromycin 500 MG in 0.9 % Sodium Chloride 250 ML 125 MG IV ×2 (00:13→21:28)
--- NOTE | 2022-10-18 08:14 | HO.PM.IMPN ---
Subjective Subjective Date of Service: 10/18/22 Interval History: no changes Physical Exam Vital Signs: Vital Signs: Last Vital Signs Temp 96.8 F 10/18/22 07:50 Pulse 91 10/18/22 07:50 Resp 16 10/18/22 07:50 BP 116/62 10/18/22 07:50 Pulse Ox 88 L 10/18/22 07:50 O2 Del Method High Flow Nasal C annula 10/18/22 07:50 O2 Flow Rate 55 10/18/22 04:00 FiO2 100 10/18/22 07:50 Oxygen Flow Rate 15 10/13/22 16:20 BMI result Body Mass Index 28.0 more alert, crackles Objective Data Active Medications Acetaminophen (Acetaminophen 325 Mg Tablet) 650 mg PO Q6H PRN PRN Reason: Pain, Mild (Pain Scale 1-3) Apixaban (Apixaban 5 Mg Tablet) 5 mg PO BID [facility] Last Admin: 10/17/22 23:58 Dose: 5 mg Documented By: CYNTHIA Aspirin (Aspirin 81 Mg Tab.Chew) 81 mg PO DAILY [facility] Last Admin: 10/17/22 09:35 Dose: 81 mg Documented By: OLE Atorvastatin Calcium (Atorvastatin Calcium 10 Mg Tablet) 10 mg PO BEDTIME [facility] Last Admin: 10/17/22 23:58 Dose: 10 mg Documented By: CYNTHIA Duloxetine HCl (Duloxetine Hcl 20 Mg Capsule.) 40 mg PO DAILY [facility] Last Admin: 10/17/22 09:34 Dose: 40 mg Documented By: OLE Ferrous Sulfate (Ferrous Sulfate 324 Mg Tablet.) 325 mg PO DAILY [facility] Last Admin: 10/17/22 09:35 Dose: 325 mg Documented By: OLE Ceftriaxone Sodium 1 gm/ (Sodium Chloride) 50 mls @ 100 mls/hr IV Q24H [facility] Last Infusion: 10/17/22 17:57 Dose: 0 mls/hr Documented By: OLE Azithromycin 500 mg/ Sodium (Chloride) 250 mls @ 125 mls/hr IV Q24H [facility] Last Infusion: 10/18/22 02:21 Dose: 0 mls/hr Documented By: CYNTHIA Lisinopril (Lisinopril 5 Mg Tablet) 5 mg PO DAILY [facility]; Protocol Last Admin: 10/17/22 09:42 Dose: 5 mg Documented By: OLE Melatonin (Melatonin 3 Mg Tablet) 6 mg PO BEDTIME PRN PRN Reason: Insomnia Last Admin: 10/17/22 23:59 Dose: 6 mg Documented By: CYNTHIA Methylprednisolone Sodium Succinate (Methylprednisolone Sod Succ 125 Mg/2 Ml Vial) 60 mg IVPUSH BID [facility] Last Admin: 10/18/22 00:10 Dose: 60 mg Documented By: CYNTHIA Olanzapine (Olanzapine 10 Mg Vial) 5 mg IM STAT PRN PRN Reason: anxiety/restlessness Last Admin: 10/16/22 00:22 Dose: 5 mg Documented By: PAUL Ondansetron HCl (Ondansetron Hcl 4 Mg/2 Ml Vial) 4 mg IVPUSH Q8H PRN PRN Reason: Nausea and Vomiting Pharmacy Consult (Consult Rx Perform Med Rec) 1 each MISCELLANE ONCE PRN PRN Reason: Consult order Sodium Chloride (0.9 % Sodium Chloride Flush 3 Ml Syringe) 3 ml IVFLUSH QSHIFT [facility] Last Admin: 10/18/22 00:10 Dose: 3 ml Documented By: CYNTHIA Tamsulosin HCl (Tamsulosin Hcl 0.4 Mg Capsule) 0.4 mg PO BEDTIME [facility] Last Admin: 10/17/22 23:58 Dose: 0.4 mg Documented By: CYNTHIA Labs 10/16/22 07:38 10/16/22 07:38 Assessment and Plan (1) Hypoxia: Status: Acute Plan 87M PMH paroxysmal afib, bph, htn, hld, presented with sob acute metabolic encephalopathy and acute hypoxic respiratory failure due to acute on chronic aspiration pneumonitis with superimposed bacterial pneumonia as well as recent covid 19. rocephin, azithro, steroids weaned off partiabl NRB, now only on high flow dysphagia INFORMATION TECHNOLOGY DIRECTOR appreciated NDD2 solids necatar thick acute small right upper lobe PE doubt significantly contributing to hypoxia eliquis paroxysmal afib lovenox htn lisinopril hld statin bph flomax DNR/DNI reason for continued hospitalization:hypoxia Time Spent With Patient Time: Total time managing care of this patient today ____ minutes. Quality Stroke Does the patient have a stroke diagnosis?: No VTE Prior VTE?: No VTE Risk Level:: Medical - moderate - high VTE Device Contraindication: Treatment Not Indicated VTE Drug Contraindication: N/A - Med Ordered
[2022-10-18] MEDS: DULoxetine HCl 20 MG CAPSULE.DR 40 MG PO (10:06)
[2022-10-18] MEDS: lisinopriL 5 MG TABLET PO (10:07)
[2022-10-18] MEDS: Apixaban 5 MG TABLET PO ×2 (10:07→21:30)
[2022-10-18] MEDS: Ferrous Sulfate 324 MG TABLET.DR PO (10:07)
[2022-10-18] MEDS: Aspirin 81 MG TAB.CHEW PO (10:07)
[2022-10-18] MEDS: cefTRIAXone sodium 1 GM in 0.9 % Sodium Chloride 50 ML IV (18:40)
[2022-10-18] MEDS: Artificial Tears 15 ML DROPS 2 DROP EYE-BOTH (21:28)
[2022-10-18] MEDS: Tamsulosin HCL 0.4 MG CAPSULE PO (21:30)
[2022-10-18] MEDS: Atorvastatin Calcium 10 MG TABLET PO (21:30)
[2022-10-19] VITALS (18 sets, daily range): BP systolic 75–140; BP diastolic 42–74; PULSE 82–102; RESP 14–24; TEMP 36.1–36.8; O2SAT 86–94; BMI 28.2
--- NOTE | 2022-10-19 00:58 | PC.NURSE ---
Assumed care at 07:00. Patient more oriented today, arousable to voice, oriented x4, redirectable but forgetful and compulsively pulling off his high flow nasal cannula and mask when used. Mostly in the evening, pulling these off, telesitter in use. Patient denies SI, was able to be redirected by explaining risks of removing oxygen equipment. Desaturation to 79% when he removes these, often requiring application of NRB in addition to 100% 45 LPM high flow to bring oxygen saturation back to >90%. Patient denies dizziness or symptoms with desaturation. This morning patient repeatedly desaturating despite using high flow and non-rebreather, noted to be desaturating each time he was incontinent, and needed to be provided hygiene. [place] catheter was not functional with patient. Discussed with MD and new order to place dooley catheter. Mildly traumatic insertion, with slight hematuria afterwards, then urine changed to tea colored, MD notiified. Ate poorly, but with setup and cueing did eat small portions of all meals. med compliant. Pureed food and nectar thick liquids, pureed with crushed medications. Incontinent of large amount of dark brown/greenish stool.
--- NOTE | 2022-10-19 03:42 | PC.NURSE ---
Addendum entered by Tiffanie Norton RN 10/19/22 04:00: Decision is to continue with current treatment. Original Note: Patient is on high flow 50 L, 100 percent and full NRB, setting 87-88%. MOLST allows using non-invasive ventilation ,? CPAP. Spoke to respiratory and Dr Mcintosh. Would not help much per Dr Mcintosh, respiratory to speak to him directly, awaiting decision.
[2022-10-19] MEDS: 0.9 % Sodium Chloride Flush 3 ML SYRINGE IVFLUSH ×2 (08:45→18:35)
[2022-10-19] MEDS: Apixaban 5 MG TABLET PO ×2 (08:45→20:01)
[2022-10-19] MEDS: methylPREDNISolone Sod Succ 125 MG/2 ML VIAL 60 MG IVPUSH ×2 (08:45→20:00)
[2022-10-19] MEDS: DULoxetine HCl 20 MG CAPSULE.DR 40 MG PO (08:45)
[2022-10-19] MEDS: Ferrous Sulfate 324 MG TABLET.DR PO (08:45)
[2022-10-19] MEDS: Aspirin 81 MG TAB.CHEW PO (08:45)
[2022-10-19] MEDS: lisinopriL 5 MG TABLET PO (08:45)
--- NOTE | 2022-10-19 09:04 | HO.PM.IMPN ---
Subjective Subjective Date of Service: 10/19/22 Interval History: about the same Physical Exam Vital Signs: Vital Signs: Last Vital Signs Temp 97.3 F 10/19/22 07:11 Pulse 96 10/19/22 07:11 Resp 20 10/19/22 07:33 BP 94/67 10/19/22 07:11 Pulse Ox 88 L 10/19/22 07:11 O2 Del Method High Flow Nasal C annula, Non-Rebrea ther Mask 10/19/22 07:11 O2 Flow Rate 50 10/19/22 07:11 FiO2 100 10/19/22 07:11 Oxygen Flow Rate 15 10/13/22 16:20 BMI result Body Mass Index 28.2 more alert, crackles Objective Data Active Medications Acetaminophen (Acetaminophen 325 Mg Tablet) 650 mg PO Q6H PRN PRN Reason: Pain, Mild (Pain Scale 1-3) Apixaban (Apixaban 5 Mg Tablet) 5 mg PO BID [facility] Last Admin: 10/19/22 08:45 Dose: 5 mg Documented By: RONAK Artificial Tears (Artificial Tears 15 Ml Drops) 2 drop EYE-BOTH Q4H PRN PRN Reason: dry eyes Last Admin: 10/18/22 21:28 Dose: 2 drop Documented By: CIRILO Aspirin (Aspirin 81 Mg Tab.Chew) 81 mg PO DAILY [facility] Last Admin: 10/19/22 08:45 Dose: 81 mg Documented By: RONAK Atorvastatin Calcium (Atorvastatin Calcium 10 Mg Tablet) 10 mg PO BEDTIME [facility] Last Admin: 10/18/22 21:30 Dose: 10 mg Documented By: CIRILO Duloxetine HCl (Duloxetine Hcl 20 Mg Capsule.) 40 mg PO DAILY [facility] Last Admin: 10/19/22 08:45 Dose: 40 mg Documented By: RONAK Ferrous Sulfate (Ferrous Sulfate 324 Mg Tablet.) 324 mg PO DAILY [facility] Last Admin: 10/19/22 08:45 Dose: 324 mg Documented By: RONAK Ceftriaxone Sodium 1 gm/ (Sodium Chloride) 50 mls @ 100 mls/hr IV Q24H [facility] Last Infusion: 10/18/22 21:15 Dose: 0 mls/hr Documented By: CIRILO Azithromycin 500 mg/ Sodium (Chloride) 250 mls @ 125 mls/hr IV Q24H [facility] Last Infusion: 10/18/22 23:44 Dose: 0 mls/hr Documented By: DOBROWander Lisinopril (Lisinopril 5 Mg Tablet) 5 mg PO DAILY [facility]; Protocol Last Admin: 10/19/22 08:45 Dose: 5 mg Documented By: RONAK Melatonin (Melatonin 3 Mg Tablet) 6 mg PO BEDTIME PRN PRN Reason: Insomnia Last Admin: 10/17/22 23:59 Dose: 6 mg Documented By: CYNTHIA Methylprednisolone Sodium Succinate (Methylprednisolone Sod Succ 125 Mg/2 Ml Vial) 60 mg IVPUSH BID [facility] Last Admin: 10/19/22 08:45 Dose: 60 mg Documented By: RONAK Olanzapine (Olanzapine 10 Mg Vial) 5 mg IM STAT PRN PRN Reason: anxiety/restlessness Last Admin: 10/16/22 00:22 Dose: 5 mg Documented By: PAUL Ondansetron HCl (Ondansetron Hcl 4 Mg/2 Ml Vial) 4 mg IVPUSH Q8H PRN PRN Reason: Nausea and Vomiting Pharmacy Consult (Consult Rx Perform Med Rec) 1 each MISCELLANE ONCE PRN PRN Reason: Consult order Sodium Chloride (0.9 % Sodium Chloride Flush 3 Ml Syringe) 3 ml IVFLUSH QSHIFT [facility] Last Admin: 10/19/22 08:45 Dose: 3 ml Documented By: RONAK Tamsulosin HCl (Tamsulosin Hcl 0.4 Mg Capsule) 0.4 mg PO BEDTIME [facility] Last Admin: 10/18/22 21:30 Dose: 0.4 mg Documented By: TSIANM Labs 10/16/22 07:38 10/16/22 07:38 Microbiology Microbiology Results: Microbiology 10/13/22 17:01 Blood Culture - Final Blood - Venous No growth after 5 days. 10/13/22 16:41 Blood Culture - Final Blood - Venous No growth after 5 days. Assessment and Plan (1) Hypoxia: Status: Acute Plan 87M PMH paroxysmal afib, bph, htn, hld, presented with sob acute metabolic encephalopathy and acute hypoxic respiratory failure due to acute on chronic aspiration pneumonitis with superimposed bacterial pneumonia as well as recent covid 19. rocephin, azithro, steroids back on partiabl NRB and max high flow dysphagia MEDICAL CODING TECHNICIAN appreciated NDD2 solids necatar thick acute chf with reduced EF on echo ?silent [place] vs cardiomyopathy from covid iv lasix cardio eval acute small right upper lobe PE doubt significantly contributing to hypoxia eliquis paroxysmal afib lovenox htn lisinopril hld statin bph flomax DNR/DNI reason for continued hospitalization:hypoxia Time Spent With Patient Time: Total time managing care of this patient today ____ minutes. Quality Stroke Does the patient have a stroke diagnosis?: No VTE Prior VTE?: No VTE Risk Level:: Medical - moderate - high VTE Device Contraindication: Treatment Not Indicated VTE Drug Contraindication: N/A - Med Ordered
--- NOTE | 2022-10-19 11:55 | P.CONCA_ITS ---
History of Present Illness History of Present Illness Date of Service: 10/19/22 Requesting physician: Дмитрий Ferro Chief complaint: cardiomyopathy Narrative: 87-year-old gentleman with paroxysmal atrial fibrillation, BPH, hypertension, hyperlipidemia who presented with shortness of breath. He has respiratory failure due to chronic aspiration pneumonitis with superimposed bacterial pneumonia as well as recent COVID-19 infection. He has dysphagia and is curren tly on nectar thick diet. He is on high-flow nasal cannula as well as non- rebreather at this point. He had echocardiography performed which has shown cardiomyopathy with severe LV dysfunction and we have been asked to help with management. The patient is quite short of breath currently and is on supplemental oxygen as described. He is denying chest discomfort. He does not have any significant peripheral edema. No abdominal distension or fullness. [facility] Past Medical History Medical History Atrial fibrillation BPH (benign prostatic hyperplasia) Essential hypertension Mood disorder Spinal stenosis Social History Social History Household Members: Unknown / Unable to assess Housing: Assisted Living Facility Unable to assess alcohol history related to: Unknown Patient Tobacco Use Status: Tobacco use Unknown Use of substances other than those prescribed or required for medical reasons: Unknown Currently Displaying Signs/Symptoms of Drug Intoxication Withdrawal: No Advance Directives: No Advance Directives Information Provided: No Recently lost weight without trying: Unsure service: No Meds Allergies Allergy/AdvReac Type Severity Reaction Status Date / Time No Known Allergies Allergy Verified 10/13/22 16:34 Active Medications: Current Medications Acetaminophen (Acetaminophen 325 Mg Tablet) 650 mg PO Q6H PRN PRN Reason: Pain, Mild (Pain Scale 1-3) Apixaban (Apixaban 5 Mg Tablet) 5 mg PO BID [facility] Last Admin: 10/19/22 08:45 Dose: 5 mg Artificial Tears (Artificial Tears 15 Ml Drops) 2 drop EYE-BOTH Q4H PRN PRN Reason: dry eyes Last Admin: 10/18/22 21:28 Dose: 2 drop Aspirin (Aspirin 81 Mg Tab.Chew) 81 mg PO DAILY [facility] Last Admin: 10/19/22 08:45 Dose: 81 mg Atorvastatin Calcium (Atorvastatin Calcium 10 Mg Tablet) 10 mg PO BEDTIME [facility] Last Admin: 10/18/22 21:30 Dose: 10 mg Duloxetine HCl (Duloxetine Hcl 20 Mg Capsule.) 40 mg PO DAILY [facility] Last Admin: 10/19/22 08:45 Dose: 40 mg Ferrous Sulfate (Ferrous Sulfate 324 Mg Tablet.) 324 mg PO DAILY [facility] Last Admin: 10/19/22 08:45 Dose: 324 mg Furosemide (Furosemide 40 Mg/4 Ml Vial) 40 mg IVPUSH BID@0900,1800 [facility]; Protocol Melatonin (Melatonin 3 Mg Tablet) 6 mg PO BEDTIME PRN PRN Reason: Insomnia Last Admin: 10/17/22 23:59 Dose: 6 mg Methylprednisolone Sodium Succinate (Methylprednisolone Sod Succ 125 Mg/2 Ml Vial) 60 mg IVPUSH BID [facility] Last Admin: 10/19/22 08:45 Dose: 60 mg Olanzapine (Olanzapine 10 Mg Vial) 5 mg IM STAT PRN PRN Reason: anxiety/restlessness Last Admin: 10/16/22 00:22 Dose: 5 mg Ondansetron HCl (Ondansetron Hcl 4 Mg/2 Ml Vial) 4 mg IVPUSH Q8H PRN PRN Reason: Nausea and Vomiting Pharmacy Consult (Consult Rx Perform Med Rec) 1 each MISCELLANE ONCE PRN PRN Reason: Consult order Sodium Chloride (0.9 % Sodium Chloride Flush 3 Ml Syringe) 3 ml IVFLUSH QSHIFT [facility] Last Admin: 10/19/22 08:45 Dose: 3 ml Tamsulosin HCl (Tamsulosin Hcl 0.4 Mg Capsule) 0.4 mg PO BEDTIME [facility] Last Admin: 10/18/22 21:30 Dose: 0.4 mg Home Medications Medication Instructions Recorded Confirmed Last Taken Type acetaminophen 500 mg tablet 500 mg PO Q6H PRN Pain 10/13/22 10/13/22 10/08/22 History albuterol sulfate 2.5 mg/3 mL 2.5 mg inhalation Q6H PRN 10/13/22 10/13/22 Unknown History (0.083 %) solution for nebulization Shortness Of Breath amoxicillin 875 mg-potassium 1 tab PO BID PNA 10/13/22 10/13/22 10/13/22 History clavulanate 125 mg tablet aspirin 81 mg chewable tablet 81 mg PO DAILY 10/13/22 10/13/22 10/13/22 History atorvastatin 10 mg tablet 10 mg PO BEDTIME 10/13/22 10/13/22 10/12/22 History azithromycin 250 mg tablet 250 mg PO DAILY 10/13/22 10/13/22 Unknown History cholecalciferol (vitamin D3) 25 25 mcg PO DAILY 10/13/22 10/13/22 10/13/22 History mcg (1,000 unit) tablet duloxetine 40 mg capsule,delayed 40 mg PO DAILY 10/13/22 10/13/22 10/13/22 History release ferrous sulfate 325 mg (65 mg 325 mg PO DAILY 10/13/22 10/13/22 10/13/22 History iron) tablet levocetirizine 5 mg tablet 5 mg PO QPM 10/13/22 10/13/22 10/12/22 History lisinopril 5 mg tablet 5 mg PO DAILY 10/13/22 10/13/22 10/13/22 History tamsulosin 0.4 mg capsule 0.4 mg PO BEDTIME 10/13/22 10/13/22 10/12/22 History Physical Exam Vital Signs: Vital Signs: Last Vital Signs Temp 97.5 F 10/19/22 11:20 Pulse 88 10/19/22 11:20 Resp 18 10/19/22 11:38 BP 97/63 10/19/22 11:20 Pulse Ox 93 10/19/22 11:20 O2 Del Method High Flow Nasal C annula, Non-Rebrea ther Mask 10/19/22 11:20 O2 Flow Rate 50 10/19/22 11:20 FiO2 100 10/19/22 11:20 Oxygen Flow Rate 15 10/13/22 16:20 BMI result Body Mass Index 28.2 GENERAL APPEARANCE: Short of breath. On high-flow nasal cannula as well as non-rebreather. NECK: no carotid bruit, no significant jugular venous distention. SKIN: no suspicious lesions, warm and dry. HEART: no murmurs, irregular rate and rhythm. LUNGS: Basal to mid lung crackles. ABDOMEN: soft, nontender. EXTREMITIES: no edema. PERIPHERAL PULSES: equal. NEUROLOGIC: No gross deficits, AAO X 3 Objective Labs and Meds 10/16/22 07:38 10/16/22 07:38 Assessment and Plan (1) Cardiomyopathy: Status: Acute (2) Respiratory failure: Status: Acute Plan 87-year-old gentleman with aspiration pneumonitis, pneumonia as well as recent COVID-19 infection. Echocardiography has shown severe LV dysfunction with EF of 15-20%. Basal inferolateral segment was akinetic. Moderate decreased right ventricular systolic function. Clinically does not appears to be volume overloaded. It appears his dyspnea is multifactorial at this point is due to chronic aspiration, pneumonia and recent COVID-19 infection. He also has a pulmonary embolus and is currently on anticoagulation. CT also has shown extensive interstitial disease. I think his issues are mostly pulmonary and I doubt that he is in congestive heart failure. He does have cardiomyopathy which can be due to sepsis. Blood pressures are currently soft. I think it would be challenging to add Entresto or beta-cristiano currently. Can add Jardiance. If respiratory status improves and blood pressure has room then we can add other medications for cardiomyopathy. Thank you for allowing me to participate in the care of your patient. Please feel free to contact me if you have any questions. Time Spent With Patient Time: Total time managing care of this patient today ____ minutes. Procedures Date of Service Date of Service: 10/19/22
[2022-10-19] MEDS: Furosemide 40 MG/4 ML VIAL IVPUSH ×2 (12:24→18:36)
--- NOTE | 2022-10-19 13:36 | MHC.CM.PN ---
EMR reviewed and per MD rounds, pt is not medically cleared for D/C due to continued hypoxia. CM will continue to follow.
--- NOTE | 2022-10-19 14:33 | MHC.SLORD ---
Speech Language Pathology Order Status: HOG MAN attempted to visit pt x2 this afternoon. Pt sleeping, then receiving nursing care. Pt is currently on a ground diet (NDD2) with nectar thick liquids. Per RN, pt ate poorly, but with setup and cuing ate small portions of all meals. HOG MAN will continue to follow.
[2022-10-19] MEDS: Atorvastatin Calcium 10 MG TABLET PO (20:00)
--- NOTE | 2022-10-19 20:45 | PM.EVENT ---
Event Note Date of Service: 10/19/22 Event Note: Received a report from nurse that patient is hypotensive with a blood pressure of 75/42. Patientis awake, answers questions. states he feels tired. on NR and high flow. will give one dose of midodrine, and albumin and reasses bp. pt is DNR/DNI, Spoke to Naldo as well as Son Kai , who believes that pt would not benefit from ICU or pressers. and would like to continue current measure. Did discuss the poor prognosis with family. Will monitor Time Spent With Patient Time: Total time managing care of this patient today ____ minutes.
[2022-10-19] MEDS: Midodrine HCl 5 MG TABLET PO (20:47)
[2022-10-19] MEDS: Albumin Human 25 % 100 ML IV ×2 (20:47→21:35)
[2022-10-20] VITALS (11 sets, daily range): BP systolic 116–151; BP diastolic 51–78; PULSE 80–100; RESP 17–22; TEMP 36–36.7; O2SAT 89–96; BMI 26.8
[2022-10-20] MEDS: 0.9 % Sodium Chloride Flush 3 ML SYRINGE IVFLUSH ×2 (02:01→09:12)
--- NOTE | 2022-10-20 02:24 | PC.NURSE ---
1900: Handover received and acquired care of patient Patient, sleepy, but awakens easily to voice and conversant in short sentences. Pt. on High Flow at 30L nd fio2 of 100% with NRB at 10L. Patient with O2 sat's of 90-92% and denies dyspnea at rest. LS: diminished bilateral upper lobes with L>R fine crackles. Pt. unable to prone. When pt. occasionally forgets and removes all his oxygen, O2 sat's decrease to 75%. Once all oxygen reapplied, O2 sat's return to 90-92%. Minimal NPC audible. A. Flutter in the 90's with BBB. At 2004, obtained a right manual BP of 75/42 and HR of 96. Pt. slight more sleepy, awakens easily to voice and denies dizziness. Tamsulosin held and reported these findings to Dr. Taylor. Per new orders, pt. received 5mg oral Midodrine and Albumin 25% (100ml) times 2 doses. At 2149, pt. 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 BP machine left rm 115/68. Dr. Avila updated on pt. condition at that time. At 2400, BP 140/88 with HR 82. Will cont. to monitor.
[2022-10-20 08:19] LABS: Hematocrit 52.4 % (42.0-52.0); Hemoglobin 16.9 g/dl (14.0-18.0); Mean Corpuscular HGB Conc 32.3 g/dl (31.0-36.0); Mean Corpuscular Hemoglobin 32.4 pg (27.0-33.0); Mean Corpuscular Volume 100.6 fL (80.0-98.0); Mean Platelet Volume 10.5 fL (9.4-12.4); Platelet Count 288 X10*3/uL (160-400); Red Blood Count 5.21 X10*6/uL (4.60-5.80); White Blood Count 19.3 X10*3/uL (4.8-10.8)
[2022-10-20 08:44] LABS: Anion Gap 19 (12-20); Blood Urea Nitrogen 51 mg/dL (9-16); Carbon Dioxide 30 mmol/L (22-29); Chloride 106 mmol/L (96-108); Estimated Glomerular Filt Rate 48; Glucose Fasting 126 mg/dL (60-99); Potassium 4.5 mmol/L (3.3-5.1); Sodium 150 mmol/L (135-145)
[2022-10-20] MEDS: Ferrous Sulfate 324 MG TABLET.DR PO (09:12)
[2022-10-20] MEDS: DULoxetine HCl 20 MG CAPSULE.DR 40 MG PO (09:12)
[2022-10-20] MEDS: Apixaban 5 MG TABLET PO ×2 (09:12→20:00)
[2022-10-20] MEDS: methylPREDNISolone Sod Succ 125 MG/2 ML VIAL 60 MG IVPUSH ×2 (09:12→19:59)
[2022-10-20] MEDS: Aspirin 81 MG TAB.CHEW PO (09:13)
--- NOTE | 2022-10-20 11:23 | HO.PM.IMPN ---
Subjective Subjective Date of Service: 10/20/22 Interval History: about the same Physical Exam Vital Signs: Vital Signs: Last Vital Signs Temp 96.8 F 10/20/22 07:56 Pulse 91 10/20/22 07:56 Resp 20 10/20/22 08:04 BP 151/71 H 10/20/22 07:56 Pulse Ox 93 10/20/22 07:56 O2 Del Method High Flow Nasal C annula 10/20/22 07:56 O2 Flow Rate 50 10/20/22 07:56 FiO2 99.4 10/20/22 07:56 Oxygen Flow Rate 15 10/13/22 16:20 BMI result Body Mass Index 26.8 GENERAL APPEARANCE: Short of breath. On high-flow nasal cannula as well as non-rebreather. NECK: no carotid bruit, no significant jugular venous distention. SKIN: no suspicious lesions, warm and dry. HEART: no murmurs, irregular rate and rhythm. LUNGS: Basal to mid lung crackles. ABDOMEN: soft, nontender. EXTREMITIES: no edema. PERIPHERAL PULSES: equal. NEUROLOGIC: No gross deficits, AAO X 3 Objective Data Active Medications Acetaminophen (Acetaminophen 325 Mg Tablet) 650 mg PO Q6H PRN PRN Reason: Pain, Mild (Pain Scale 1-3) Apixaban (Apixaban 5 Mg Tablet) 5 mg PO BID [facility] Last Admin: 10/20/22 09:12 Dose: 5 mg Documented By: RONAK Artificial Tears (Artificial Tears 15 Ml Drops) 2 drop EYE-BOTH Q4H PRN PRN Reason: dry eyes Last Admin: 10/18/22 21:28 Dose: 2 drop Documented By: CIRILO Aspirin (Aspirin 81 Mg Tab.Chew) 81 mg PO DAILY [facility] Last Admin: 10/20/22 09:13 Dose: 81 mg Documented By: RONAK Atorvastatin Calcium (Atorvastatin Calcium 10 Mg Tablet) 10 mg PO BEDTIME [facility] Last Admin: 10/19/22 20:00 Dose: 10 mg Documented By: TARA Duloxetine HCl (Duloxetine Hcl 20 Mg Capsule.) 40 mg PO DAILY [facility] Last Admin: 10/20/22 09:12 Dose: 40 mg Documented By: RONAK Ferrous Sulfate (Ferrous Sulfate 324 Mg Tablet.) 324 mg PO DAILY [facility] Last Admin: 10/20/22 09:12 Dose: 324 mg Documented By: RONAK Dextrose (D5w) 1,000 mls @ 100 mls/hr IVCONT .Q10H [facility] Melatonin (Melatonin 3 Mg Tablet) 6 mg PO BEDTIME PRN PRN Reason: Insomnia Last Admin: 10/17/22 23:59 Dose: 6 mg Documented By: CYNTHIA Methylprednisolone Sodium Succinate (Methylprednisolone Sod Succ 125 Mg/2 Ml Vial) 60 mg IVPUSH BID [facility] Last Admin: 10/20/22 09:12 Dose: 60 mg Documented By: RONAK Olanzapine (Olanzapine 10 Mg Vial) 5 mg IM STAT PRN PRN Reason: anxiety/restlessness Last Admin: 10/16/22 00:22 Dose: 5 mg Documented By: PAUL Ondansetron HCl (Ondansetron Hcl 4 Mg/2 Ml Vial) 4 mg IVPUSH Q8H PRN PRN Reason: Nausea and Vomiting Pharmacy Consult (Consult Rx Perform Med Rec) 1 each MISCELLANE ONCE PRN PRN Reason: Consult order Sodium Chloride (0.9 % Sodium Chloride Flush 3 Ml Syringe) 3 ml IVFLUSH QSHIFT [facility] Last Admin: 10/20/22 09:12 Dose: 3 ml Documented By: RONAK Tamsulosin HCl (Tamsulosin Hcl 0.4 Mg Capsule) 0.4 mg PO BEDTIME [facility] Last Admin: 10/19/22 20:07 Dose: Not Given Documented By: TARA Non-Admin Reason: Per nurse Labs 10/20/22 07:44 10/20/22 07:44 Labs: Laboratory Results - last 24 hr 10/20/22 10/20/22 07:44 07:44 MCV 100.6 H MCH 32.4 MCHC 32.3 RDW 13.0 Plt Count 288 MPV 10.5 Absolute Nucleated RBC 0.000 Nucleated RBC % (auto) 0.0 Anion Gap 19 Estim Creat Clear Calc 41.0 Estimated GFR 48 Fasting Glucose 126 H Calcium 10.0 D Assessment and Plan (1) Hypoxia: Status: Acute Plan 87M PMH paroxysmal afib, bph, htn, hld, presented with sob acute metabolic encephalopathy and acute hypoxic respiratory failure due to acute on chronic aspiration pneumonitis with superimposed bacterial pneumonia as well as recent covid 19. 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 Quality Stroke Does the patient have a stroke diagnosis?: No VTE Prior VTE?: No VTE Risk Level:: Medical - moderate - high VTE Device Contraindication: Treatment Not Indicated VTE Drug Contraindication: N/A - Med Ordered
[2022-10-20] MEDS: Dextrose 5 % 1,000 ML 100 ML IVCONT (14:06)
--- NOTE | 2022-10-20 16:47 | MHC.SL.SWA ---
Speech Pathologist Impression: Risk of Aspiration Due to: Reduced Cognition Dysphasia Diet Status: Recommend CONTINUE on Ground Mechanical/Altered with [place] Thick Liquids, Pills crushed in puree. Liquid Consistency and Strategies for Safe Swallow: Liquid Intake Recommendation: [place] Thick Liquid Intake Strategies: Small Sips No Straws Solid Food Consistency: Dietary Recommendations: Grnd/Mech Altered (NDD2) Additional Modifications to Solid Foods: One to one feeding Oral Medication Intake: Crushed with Puree Please contact the pharmacy regarding appropriate crushable or liquid drug formulations that are available whenever modified delivery is recommended. Compensatory Strategies and Precautions to be Taken for Safe Swallow: Sitting Upright (90 deg) No Straw Liquids from Spoon Small Bites and Sips Rate of Ingestion Change Oral Check Avoid Specific Foods Supervision While Eating and Drinking for Safe Swallow: Total Assistance (1:1) Foods to Avoid: Dry or sticky textures, hard to chew solids Swallowing Recommended Treatments: Compens. Strategy Educat. Recommendation for Speech: Inpatient Speech Therapy Comment: Patient was seen during lunch. At onset he was sitting in bed with the head of the bed at 90 degrees, with both high flow cannula and non-rebreather mask in place. BUDGET SPECIALIST found at bedside container of thickened orange juice that had melted ice and straw, which was removed for safety concerns. Patient as given tsp full of ground meat with gravy and potatoes, with patient producing a mildly prolonged period of munching on bolus, and slow oral phase, with delay initiating swallow and oral residual noted after swallow. When followed with tsps of thickened juice, residual was cleared. Patient noted that his mouth was dry, and asked for more of the juice which was given by both tsp and controlled cup sip, with mild delay initiating swallow noted, no clinical signs of aspiration. Patient was given oxygen break with mask replaced for short period, with patient noted to be taking deep breaths. Half of the meal was given by alternating bites of solid with sips of liquid to clear residual and periodic oxygen breaks, with no clinical signs of aspiration throughout. BUDGET SPECIALIST advised the RN regarding the risk the [place] juice/melted ice and straw, and changed the white board to reflect NO STRAWS and emphasized NECTAR THICK liquids. RN reported that Patient did not need to be on Oxy Mask, but it was unclear who had put this on the patient. RN then continued to feed the rest of the lunch to the patient. Recommend CONTINUE on Ground Mechanical/Altered with [place] Thick Liquids, Pills crushed in puree. Frequency/Duration: Date Range for Service Req: Timeline to reassess: Cheese Production Supervisor Clinican/Clinical Fellow: No Supervisory Statement: I have reviewed and agree with the student/clinical fellow's documentation: N/A Speech Language Pathologist: Sharri Riojas M.A., CCC-BUDGET SPECIALIST
[2022-10-20] MEDS: Tamsulosin HCL 0.4 MG CAPSULE PO (20:00)
[2022-10-20] MEDS: Atorvastatin Calcium 10 MG TABLET PO (20:16)
[2022-10-21] VITALS (13 sets, daily range): BP systolic 110–135; BP diastolic 55–92; PULSE 89–104; RESP 12–24; TEMP 35.9–36.7; O2SAT 88–92; BMI 26.7
--- NOTE | 2022-10-21 04:36 | PC.NURSE ---
10/20/22 Handover received from previous RN, including that new IV access attempted total of 5 times during the day. Pt. has one IV ccess currently with D5W at 100ml/hr infusing. Pt. RFA IV leaking and mildly infiltrated at 0330. IV access/restart attempted total of 3 times this overnight shift, also by RN smoke jumper supervisor, at 0330 and unable to obtain access. Dr. Avila notified of no IV access at 0418 and that D5W IVF currently off. Pt. normotensive with HR afib/flutter in the 90's. Will cont. to monitor.
[2022-10-21 07:34] LABS: Hematocrit 53.1 % (42.0-52.0); Hemoglobin 17.5 g/dl (14.0-18.0); Mean Corpuscular Hemoglobin 32.4 pg (27.0-33.0); Mean Corpuscular Volume 98.3 fL (80.0-98.0); Mean Platelet Volume 10.5 fL (9.4-12.4); Platelet Count 302 X10*3/uL (160-400); Red Cell Distribution Width 13.1 % (11.0-16.0); White Blood Count 24.9 X10*3/uL (4.8-10.8)
[2022-10-21 07:45] LABS: Anion Gap 16 (12-20); Blood Urea Nitrogen 47 mg/dL (9-16); Calcium 9.4 mg/dL (8.4-10.2); Carbon Dioxide 29 mmol/L (22-29); Chloride 106 mmol/L (96-108); Creatinine Clr Calc Pharmacy 48.4; Estimated Glomerular Filt Rate 58; Glucose Fasting 126 mg/dL (60-99); Potassium 4.1 mmol/L (3.3-5.1); Sodium 147 mmol/L (135-145)
--- NOTE | 2022-10-21 10:50 | MHC.SLORD ---
Speech Language Pathology Order Status: FACTORY EXPERT attempted to see pt in morning and afternoon on this date. Per morning conversation w/ RN, pt respiratory status has been unstable and inconsistent; pt reportedly had been placed back on HFNC 2X since yesterday. FACTORY EXPERT visited pt in afternoon w/ family at bedside. Pt on HFNC and mask. Pt refused PO, agreeable to den. O2 high 80s to low 90s during visit. Family requested PO be held d/t pt's respiratory status. Family inquiring about how to feed pt; recommended that family discuss w/ nursing and/or RT. Per afternoon conversation w/ RN, pt took meds crushed in applesauce. Presented w/ holding of bolus and cough following swallow.
--- NOTE | 2022-10-21 11:20 | P.PNIM_ITS ---
Subjective Subjective Date of Service: 10/21/22 Interval History: Seen and evaluated this morning Feels better overall Still on High flow oxygen from overnight High sodium levels as well Review of Systems Review of Systems: Yes all other systems are reviewed and are negative Physical Exam Vital Signs: Vital Signs: Last Vital Signs Temp 96.8 F 10/21/22 07:14 Pulse 89 10/21/22 07:14 Resp 24 H 10/21/22 08:17 BP 119/72 10/21/22 07:14 Pulse Ox 92 10/21/22 07:14 O2 Del Method High Flow Nasal C annula 10/21/22 07:48 O2 Flow Rate 50 10/21/22 07:48 FiO2 100 10/21/22 07:48 Oxygen Flow Rate 15 10/13/22 16:20 BMI result Body Mass Index 26.7 Const: Other: Constitutional : Awake, interactive, in mild resp distress Neck : Normal inspection, Supple Cardiovascular : RRR, no JVP, trace lower extremity edema Respiratory : fair bilateral air entry, basal bilateral crackles, scattered wheezes , in mild resp distress, on high flow O2 Gastrointestinal: soft, lax, Normal bowel sounds, Non tender Skin : Warm, Dry Neurological : Alert & oriented x3, No focal deficit Objective Data Active Medications Acetaminophen (Acetaminophen 325 Mg Tablet) 650 mg PO Q6H PRN PRN Reason: Pain, Mild (Pain Scale 1-3) Albuterol/Ipratropium (Albuterol/Iprat 2.5/0.5mg 3 Ml Ampul.Neb) 3 ml INHALE RQ4H WHILE AWAKE [facility] Last Admin: 10/21/22 10:13 Dose: Not Given Documented By: HINA Non-Admin Reason: See Note Apixaban (Apixaban 5 Mg Tablet) 5 mg PO BID [facility] Last Admin: 10/20/22 20:00 Dose: 5 mg Documented By: TARA Artificial Tears (Artificial Tears 15 Ml Drops) 2 drop EYE-BOTH Q4H PRN PRN Reason: dry eyes Last Admin: 10/18/22 21:28 Dose: 2 drop Documented By: CIRILO Aspirin (Aspirin 81 Mg Tab.Chew) 81 mg PO DAILY [facility] Last Admin: 10/20/22 09:13 Dose: 81 mg Documented By: RONAK Atorvastatin Calcium (Atorvastatin Calcium 10 Mg Tablet) 10 mg PO BEDTIME [facility] Last Admin: 10/20/22 20:16 Dose: 10 mg Documented By: TARA Duloxetine HCl (Duloxetine Hcl 20 Mg Capsule.) 40 mg PO DAILY [facility] Last Admin: 10/20/22 09:12 Dose: 40 mg Documented By: RONAK Empagliflozin (Empagliflozin 10 Mg Tablet) 10 mg PO DAILY [facility] Ferrous Sulfate (Ferrous Sulfate 324 Mg Tablet.) 324 mg PO DAILY [facility] Last Admin: 10/20/22 09:12 Dose: 324 mg Documented By: RONAK Guaifenesin (Guaifenesin La 600 Mg Tab.Er.12h) 600 mg PO BID [facility] Dextrose (D5w) 1,000 mls @ 100 mls/hr IVCONT .Q10H [facility] Last Infusion: 10/21/22 04:30 Dose: 0 mls/hr Documented By: TARA Melatonin (Melatonin 3 Mg Tablet) 6 mg PO BEDTIME PRN PRN Reason: Insomnia Last Admin: 10/17/22 23:59 Dose: 6 mg Documented By: CYNTHIA Methylprednisolone Sodium Succinate (Methylprednisolone Sod Succ 125 Mg/2 Ml Vial) 60 mg IVPUSH BID [facility] Last Admin: 10/20/22 19:59 Dose: 60 mg Documented By: TARA Olanzapine (Olanzapine 10 Mg Vial) 5 mg IM STAT PRN PRN Reason: anxiety/restlessness Last Admin: 10/16/22 00:22 Dose: 5 mg Documented By: PAUL Ondansetron HCl (Ondansetron Hcl 4 Mg/2 Ml Vial) 4 mg IVPUSH Q8H PRN PRN Reason: Nausea and Vomiting Pharmacy Consult (Consult Rx Perform Med Rec) 1 each MISCELLANE ONCE PRN PRN Reason: Consult order Sodium Chloride (0.9 % Sodium Chloride Flush 3 Ml Syringe) 3 ml IVFLUSH QSHIFT [facility] Last Admin: 10/21/22 00:05 Dose: Not Given Documented By: CHELSEA Non-Admin Reason: IV Running Tamsulosin HCl (Tamsulosin Hcl 0.4 Mg Capsule) 0.4 mg PO BEDTIME [facility] Last Admin: 10/20/22 20:00 Dose: 0.4 mg Documented By: TARA Labs 10/21/22 07:25 08/09/23 07:25 Labs: Laboratory Results - last 24 hr 10/21/22 10/21/22 07:25 07:25 MCV 98.3 H MCH 32.4 MCHC 33.0 RDW 13.1 Plt Count 302 MPV 10.5 Absolute Nucleated RBC 0.000 Nucleated RBC % (auto) 0.0 Anion Gap 16 Estim Creat Clear Calc 48.4 Estimated GFR 58 Fasting Glucose 126 H Calcium 9.4 Assessment and Plan (1) Respiratory failure: Status: Acute (2) Cardiomyopathy: Status: Acute (3) Hypoxia: Status: Acute (4) Dysphagia: Status: Acute (5) Acute hypernatremia: Status: Acute Plan 87M PMH paroxysmal afib, bph, htn, hld, presented with sob acute metabolic encephalopathy and acute hypoxic respiratory failure due to acute on chronic aspiration pneumonitis with superimposed bacterial pneumonia as well as recent covid 19. Continue rocephin, azithro, steroids on partiabl NRB and max high flow acute hypernatreamia trending down continue d5w, monitro bmp dysphagia TRAFFIC LIEUTENANT appreciated NDD2 solids nectar thick Systolic chf ECHO severe LV dysfunction with EF of 15-20%.? Basal inferolateral segment was akinetic. CMP from covid\infection DC iv lasix cardio eval, likely multifactorial, start Jardiance and for OP f\u with cardiology for rest of heart failure meds eval acute small right upper lobe PE doubt significantly contributing to hypoxia eliquis paroxysmal afib lovenox htn lisinopril hld statin bph flomax DNR/DNI reason for continued hospitalization:hypoxia pending clinical improvement Time Spent With Patient Time: Total time managing care of this patient today ____ minutes. Quality Stroke Does the patient have a stroke diagnosis?: No VTE Prior VTE?: No VTE Risk Level:: Medical - moderate - high VTE Device Contraindication: Treatment Not Indicated VTE Drug Contraindication: N/A - Med Ordered
[2022-10-21] MEDS: Albuterol/Iprat 2.5/0.5MG 3 ML AMPUL.NEB INHALE ×3 (11:45→18:46)
--- NOTE | 2022-10-21 12:09 | MHC.CM.PN ---
EMR reviewed and per MD rounds, pt is not medically cleared for D/C due to continued hypoxia with use of hi-flow O2, pending pt toleration of weaning from hi-flow O2. CM will continue to follow.
[2022-10-21] MEDS: Empagliflozin 10 MG TABLET PO (12:16)
[2022-10-21] MEDS: Ferrous Sulfate 324 MG TABLET.DR PO (12:16)
[2022-10-21] MEDS: Aspirin 81 MG TAB.CHEW PO (12:16)
[2022-10-21] MEDS: methylPREDNISolone Sod Succ 125 MG/2 ML VIAL 60 MG IVPUSH ×2 (12:16→20:49)
[2022-10-21] MEDS: guaiFENesin LA 600 MG TAB.ER.12H PO ×2 (12:16→20:49)
[2022-10-21] MEDS: Apixaban 5 MG TABLET PO ×2 (12:16→20:49)
[2022-10-21] MEDS: DULoxetine HCl 20 MG CAPSULE.DR 40 MG PO (12:17)
[2022-10-21] MEDS: Azithromycin 500 MG in 0.9 % Sodium Chloride 250 ML 125 MG IV (12:18)
[2022-10-21] MEDS: cefTRIAXone sodium 1 GM in 0.9 % Sodium Chloride 50 ML IV (12:18)
[2022-10-21] MEDS: Dextrose 5 % 1,000 ML 100 ML IVCONT (13:21)
[2022-10-21 14:31] LABS: Anion Gap 21 (12-20); Blood Urea Nitrogen 50 mg/dL (9-16); Calcium 9.5 mg/dL (8.4-10.2); Carbon Dioxide 26 mmol/L (22-29); Chloride 105 mmol/L (96-108); Estimated Glomerular Filt Rate 48; Glucose Random 130 mg/dL (60-115); Potassium 4.8 mmol/L (3.3-5.1); Sodium 147 mmol/L (135-145)
[2022-10-21 18:54] LABS: VBG Base Excess -1.8 mmol/L; VBG HCO3 20 mmol/L (22-26); VBG pCO2 30 mmHg; VBG pH 7.44 (7.32-7.43); VBG pO2 59 mmHg
[2022-10-21 18:57] LABS: Venous Blood Gas Refer to POC result
[2022-10-21] MEDS: Atorvastatin Calcium 10 MG TABLET PO (20:49)
[2022-10-21] MEDS: Dextrose 5 % 1,000 ML 125 ML IVCONT (20:49)
[2022-10-21] MEDS: 0.9 % Sodium Chloride Flush 3 ML SYRINGE IVFLUSH (20:49)
[2022-10-21] MEDS: Tamsulosin HCL 0.4 MG CAPSULE PO (20:49)
[2022-10-22] VITALS (19 sets, daily range): BP systolic 92–159; BP diastolic 54–84; PULSE 85–124; RESP 14–22; TEMP 35.8–37.1; O2SAT 84–94; BMI 26.7
[2022-10-22 01:31] LABS: Anion Gap 26 (12-20); Blood Urea Nitrogen 52 mg/dL (9-16); Calcium 9.6 mg/dL (8.4-10.2); Carbon Dioxide 18 mmol/L (22-29); Chloride 107 mmol/L (96-108); Creatinine Clr Calc Pharmacy 38.5; Estimated Glomerular Filt Rate 45; Glucose Random 168 mg/dL (60-115); Potassium 4.7 mmol/L (3.3-5.1); Sodium 146 mmol/L (135-145)
[2022-10-22] MEDS: Dextrose 5 % 1,000 ML 125 ML IVCONT (06:22)
[2022-10-22 06:39] LABS: Hemoglobin 17.5 g/dl (14.0-18.0); Mean Corpuscular Hemoglobin 32.7 pg (27.0-33.0); Mean Corpuscular Volume 99.1 fL (80.0-98.0); NRBC Pct Auto 0.1 /100WBC (0.0-0.2); Platelet Count 280 X10*3/uL (160-400); Red Blood Count 5.35 X10*6/uL (4.60-5.80); Red Cell Distribution Width 13.3 % (11.0-16.0)
[2022-10-22 06:53] LABS: Anion Gap 19 (12-20); Blood Urea Nitrogen 70 mg/dL (9-16); Calcium 9.8 mg/dL (8.4-10.2); Carbon Dioxide 29 mmol/L (22-29); Chloride 107 mmol/L (96-108); Creatinine Clr Calc Pharmacy 30.7; Estimated Glomerular Filt Rate 35; Glucose Random 119 mg/dL (60-115); Potassium 4.7 mmol/L (3.3-5.1); Sodium 150 mmol/L (135-145)
[2022-10-22 07:18] LABS: White Blood Count 30.4 X10*3/uL (4.8-10.8)
[2022-10-22] MEDS: Albuterol/Iprat 2.5/0.5MG 3 ML AMPUL.NEB INHALE ×4 (07:54→19:49)
[2022-10-22] MEDS: methylPREDNISolone Sod Succ 125 MG/2 ML VIAL 60 MG IVPUSH (08:50)
[2022-10-22] MEDS: DULoxetine HCl 20 MG CAPSULE.DR 40 MG PO (08:51)
[2022-10-22] MEDS: Aspirin 81 MG TAB.CHEW PO (08:51)
[2022-10-22] MEDS: guaiFENesin LA 600 MG TAB.ER.12H PO ×2 (08:52→20:50)
[2022-10-22] MEDS: Apixaban 5 MG TABLET PO ×2 (08:52→20:52)
--- NOTE | 2022-10-22 10:38 | P.PNIM_ITS ---
Subjective Subjective Date of Service: 10/22/22 Interval History: Seen and evaluated this morning more lethargic and winded Still on High flow oxygen with addition of face mask High sodium levels and Creatinine Not eating much, not drinking much prognosis guarded Physical Exam Vital Signs: Vital Signs: Last Vital Signs Temp 96.8 F 10/22/22 07:04 Pulse 90 10/22/22 07:54 Resp 20 10/22/22 08:01 BP 112/82 10/22/22 07:04 Pulse Ox 90 L 10/22/22 07:04 O2 Del Method High Flow Nasal C annula, Non-Rebrea ther Mask 10/22/22 07:04 O2 Flow Rate 55 10/22/22 07:04 FiO2 100 10/22/22 03:36 Oxygen Flow Rate 15 10/13/22 16:20 BMI result Body Mass Index 26.7 Const: Other: Constitutional : Awake, interactive, frail and lethargic, in mod resp distress Neck : Normal inspection, Supple Cardiovascular : RRR, no JVP, trace lower extremity edema Respiratory : fair bilateral air entry, basal bilateral crackles, scattered wheezes , in mod resp distress, on high flow O2 and NRB Gastrointestinal: soft, lax, Normal bowel sounds, Non tender Skin : Warm, Dry Neurological : Alert & disoriented, No focal deficit Objective Data Active Medications Acetaminophen (Acetaminophen 325 Mg Tablet) 650 mg PO Q6H PRN PRN Reason: Pain, Mild (Pain Scale 1-3) Albuterol/Ipratropium (Albuterol/Iprat 2.5/0.5mg 3 Ml Ampul.Neb) 3 ml INHALE RQ4H WHILE AWAKE [facility] Last Admin: 10/22/22 07:54 Dose: 3 ml Documented By: CHRISTINA Apixaban (Apixaban 5 Mg Tablet) 5 mg PO BID [facility] Last Admin: 10/22/22 08:52 Dose: 5 mg Documented By: VIOLET Artificial Tears (Artificial Tears 15 Ml Drops) 2 drop EYE-BOTH Q4H PRN PRN Reason: dry eyes Last Admin: 10/18/22 21:28 Dose: 2 drop Documented By: CIRILO Aspirin (Aspirin 81 Mg Tab.Chew) 81 mg PO DAILY [facility] Last Admin: 10/22/22 08:51 Dose: 81 mg Documented By: VIOLET Atorvastatin Calcium (Atorvastatin Calcium 10 Mg Tablet) 10 mg PO BEDTIME [facility] Last Admin: 10/21/22 20:49 Dose: 10 mg Documented By: EMERALD Duloxetine HCl (Duloxetine Hcl 20 Mg Capsule.) 40 mg PO DAILY [facility] Last Admin: 10/22/22 08:51 Dose: 40 mg Documented By: VIOLET Empagliflozin (Empagliflozin 10 Mg Tablet) 10 mg PO DAILY [facility] Last Admin: 10/21/22 12:16 Dose: 10 mg Documented By: RONAK Ferrous Sulfate (Ferrous Sulfate 324 Mg Tablet.) 324 mg PO DAILY [facility] Last Admin: 10/22/22 08:51 Dose: 324 mg Documented By: VIOLET Guaifenesin (Guaifenesin La 600 Mg Tab.Er.12h) 600 mg PO BID [facility] Last Admin: 10/22/22 08:52 Dose: 600 mg Documented By: VIOLET Ceftriaxone Sodium 1 gm/ (Sodium Chloride) 50 mls @ 100 mls/hr IV Q24H [facility] Last Infusion: 10/21/22 13:22 Dose: 0 mls/hr Documented By: RONAK Azithromycin 500 mg/ Sodium (Chloride) 250 mls @ 125 mls/hr IV Q24H [facility] Last Infusion: 10/21/22 15:22 Dose: 0 mls/hr Documented By: RONAK Dextrose (D5w) 1,000 mls @ 150 mls/hr IVCONT .Q6H40M [facility] Last Admin: 10/22/22 08:48 Dose: Not Given Documented By: VIOLET Non-Admin Reason: IV Running Melatonin (Melatonin 3 Mg Tablet) 6 mg PO BEDTIME PRN PRN Reason: Insomnia Last Admin: 10/17/22 23:59 Dose: 6 mg Documented By: CYNTHIA Methylprednisolone Sodium Succinate (Methylprednisolone Sod Succ 125 Mg/2 Ml Vial) 40 mg IVPUSH Q6H [facility] Olanzapine (Olanzapine 10 Mg Vial) 5 mg IM STAT PRN PRN Reason: anxiety/restlessness Last Admin: 10/16/22 00:22 Dose: 5 mg Documented By: PAUL Ondansetron HCl (Ondansetron Hcl 4 Mg/2 Ml Vial) 4 mg IVPUSH Q8H PRN PRN Reason: Nausea and Vomiting Pharmacy Consult (Consult Rx Perform Med Rec) 1 each MISCELLANE ONCE PRN PRN Reason: Consult order Sodium Chloride (0.9 % Sodium Chloride Flush 3 Ml Syringe) 3 ml IVFLUSH QSHIFT [facility] Last Admin: 10/22/22 09:13 Dose: Not Given Documented By: VIOLET Non-Admin Reason: Previously Administered Tamsulosin HCl (Tamsulosin Hcl 0.4 Mg Capsule) 0.4 mg PO BEDTIME [facility] Last Admin: 10/21/22 20:49 Dose: 0.4 mg Documented By: EMERALD Labs 10/22/22 06:12 10/22/22 06:12 Labs: Laboratory Results - last 24 hr 10/21/22 10/21/22 10/21/22 13:40 18:39 18:42 MCV MCH MCHC RDW Plt Count MPV Absolute Nucleated RBC Nucleated RBC % (auto) Smear Path Review VBG pH 7.44 H VBG pCO2 30 VBG pO2 59 VBG HCO3 20 L VBG O2 Saturation 85.0 VBG Base Excess -1.8 Anion Gap 21 H 26 H Estim Creat Clear Calc 41.0 38.5 Estimated GFR 48 45 Random Glucose 130 H 168 H Calcium 9.5 9.6 10/22/22 10/22/22 06:12 06:12 MCV 99.1 H MCH 32.7 MCHC 33.0 RDW 13.3 Plt Count 280 MPV 11.0 Absolute Nucleated RBC 0.020 H Nucleated RBC % (auto) 0.1 Smear Path Review SEE NOTE VBG pH VBG pCO2 VBG pO2 VBG HCO3 VBG O2 Saturation VBG Base Excess Anion Gap 19 Estim Creat Clear Calc 30.7 Estimated GFR 35 Random Glucose 119 H Calcium 9.8 Assessment and Plan (1) Acute hypernatremia: Status: Acute (2) Dysphagia: Status: Acute (3) Hypoxia: Status: Acute (4) Respiratory failure: Status: Acute (5) Acute kidney injury: Status: Acute Plan 87M PMH paroxysmal afib, bph, htn, hld, presented with sob acute metabolic encephalopathy and acute hypoxic respiratory failure due to acute on chronic aspiration pneumonitis with superimposed bacterial pneumonia as well as recent covid 19. Continue rocephin, azithro, steroids on partiabl NRB and max high flow Pulm eval pending wean down as tolerated consider comfort measures , to discuss with family acute hypernatreamia Na of 150 restart d5w, monitor bmp JERO Cr of 1.8 this morning, 2/2 prerenal IVF encourage PO intake monitor I\O follow BMP dysphagia TRAVEL DIRECTOR appreciated NDD2 solids nectar thick Systolic chf ECHO severe LV dysfunction with EF of 15-20%.? Basal inferolateral segment was akinetic. CMP from covid\infection DC iv lasix cardio eval, likely multifactorial, start Jardiance and for OP f\u with cardiology for rest of heart failure meds eval acute small right upper lobe PE doubt significantly contributing to hypoxia eliquis paroxysmal afib lovenox htn lisinopril hld statin bph flomax DNR/DNI reason for continued hospitalization:hypoxia pending clinical improvement Time Spent With Patient Time: Total time managing care of this patient today ____ minutes. Quality Stroke Does the patient have a stroke diagnosis?: No VTE Prior VTE?: No VTE Risk Level:: Medical - moderate - high VTE Device Contraindication: Treatment Not Indicated VTE Drug Contraindication: N/A - Med Ordered
[2022-10-22] MEDS: Dextrose 5 % 1,000 ML 150 ML IVCONT ×2 (12:30→20:49)
[2022-10-22] MEDS: Azithromycin 500 MG in 0.9 % Sodium Chloride 250 ML 125 MG IV (12:30)
--- NOTE | 2022-10-22 13:18 | MHC.SLORD ---
Speech Language Pathology Order Status: Attempted to see patient at lunch meal. Per sitter in room, patient had refused both Lunch and Breakfast meal today, tolerated only a small amount of [place] Thick juice at both meals. Patient was sleeping at time of visit, has both HFNC and Oxymask at this time. COMPETITIVE ATHLETE will continue to follow.
--- NOTE | 2022-10-22 13:52 | P.CONPL_ITS ---
History of Present Illness History of Present Illness Consult date: 10/22/22 Requesting physician: Cosme Rivera Chief complaint: Hypoxemia Narrative: 87-year-old gentleman with underlying history of dementia, AFib, dysphagia, BPH, hypertension admitted on 10/13/2022 with weakness and progressive hypoxemia. Patient was admitted to the telemetry kenny and started on empiric treatment for COPD exacerbation and community-acquired pneumonia. Hospital course significant for chronic recurrent pulmonary aspiration with progressive hypoxia and failure to thrive. CT chest was obtained that demonstrated bilateral multifocal ground- glass infiltrates. Pulmonary evaluation was requested. Review of Systems Review of Systems: Yes Unobtainable due to mental condition ( dementia) [facility] Past Medical History Medical History Atrial fibrillation BPH (benign prostatic hyperplasia) Essential hypertension Mood disorder Spinal stenosis Social History Social History Household Members: Unknown / Unable to assess Housing: Assisted Living Facility Unable to assess alcohol history related to: Unknown Patient Tobacco Use Status: Tobacco use Unknown Use of substances other than those prescribed or required for medical reasons: Unknown Currently Displaying Signs/Symptoms of Drug Intoxication Withdrawal: No Advance Directives: No Advance Directives Information Provided: No Recently lost weight without trying: Unsure service: No Meds Allergies Allergy/AdvReac Type Severity Reaction Status Date / Time No Known Allergies Allergy Verified 10/13/22 16:34 Active Medications: Current Medications Acetaminophen (Acetaminophen 325 Mg Tablet) 650 mg PO Q6H PRN PRN Reason: Pain, Mild (Pain Scale 1-3) Albuterol/Ipratropium (Albuterol/Iprat 2.5/0.5mg 3 Ml Ampul.Neb) 3 ml INHALE RQ4H WHILE AWAKE [facility] Last Admin: 10/22/22 11:38 Dose: 3 ml Apixaban (Apixaban 5 Mg Tablet) 5 mg PO BID [facility] Last Admin: 10/22/22 08:52 Dose: 5 mg Artificial Tears (Artificial Tears 15 Ml Drops) 2 drop EYE-BOTH Q4H PRN PRN Reason: dry eyes Last Admin: 10/18/22 21:28 Dose: 2 drop Aspirin (Aspirin 81 Mg Tab.Chew) 81 mg PO DAILY [facility] Last Admin: 10/22/22 08:51 Dose: 81 mg Atorvastatin Calcium (Atorvastatin Calcium 10 Mg Tablet) 10 mg PO BEDTIME [facility] Last Admin: 10/21/22 20:49 Dose: 10 mg Duloxetine HCl (Duloxetine Hcl 20 Mg Capsule.) 40 mg PO DAILY [facility] Last Admin: 10/22/22 08:51 Dose: 40 mg Empagliflozin (Empagliflozin 10 Mg Tablet) 10 mg PO DAILY [facility] Last Admin: 10/21/22 12:16 Dose: 10 mg Ferrous Sulfate (Ferrous Sulfate 324 Mg Tablet.) 324 mg PO DAILY [facility] Last Admin: 10/22/22 08:51 Dose: 324 mg Guaifenesin (Guaifenesin La 600 Mg Tab.Er.12h) 600 mg PO BID [facility] Last Admin: 10/22/22 08:52 Dose: 600 mg Ceftriaxone Sodium 1 gm/ (Sodium Chloride) 50 mls @ 100 mls/hr IV Q24H [facility] Last Infusion: 10/21/22 13:22 Dose: Infused Azithromycin 500 mg/ Sodium (Chloride) 250 mls @ 125 mls/hr IV Q24H [facility] Last Admin: 10/22/22 12:30 Dose: 125 mls/hr Dextrose (D5w) 1,000 mls @ 150 mls/hr IVCONT .Q6H40M [facility] Last Admin: 10/22/22 12:31 Dose: Not Given Melatonin (Melatonin 3 Mg Tablet) 6 mg PO BEDTIME PRN PRN Reason: Insomnia Last Admin: 10/17/22 23:59 Dose: 6 mg Methylprednisolone Sodium Succinate (Methylprednisolone Sod Succ 125 Mg/2 Ml Vial) 40 mg IVPUSH Q6H [facility] Olanzapine (Olanzapine 10 Mg Vial) 5 mg IM STAT PRN PRN Reason: anxiety/restlessness Last Admin: 10/16/22 00:22 Dose: 5 mg Ondansetron HCl (Ondansetron Hcl 4 Mg/2 Ml Vial) 4 mg IVPUSH Q8H PRN PRN Reason: Nausea and Vomiting Pharmacy Consult (Consult Rx Perform Med Rec) 1 each MISCELLANE ONCE PRN PRN Reason: Consult order Sodium Chloride (0.9 % Sodium Chloride Flush 3 Ml Syringe) 3 ml IVFLUSH QSHIFT [facility] Last Admin: 10/22/22 09:13 Dose: Not Given Tamsulosin HCl (Tamsulosin Hcl 0.4 Mg Capsule) 0.4 mg PO BEDTIME [facility] Last Admin: 10/21/22 20:49 Dose: 0.4 mg Home Medications Medication Instructions Recorded Confirmed Last Taken Type acetaminophen 500 mg tablet 500 mg PO Q6H PRN Pain 10/13/22 10/13/22 10/08/22 History albuterol sulfate 2.5 mg/3 mL 2.5 mg inhalation Q6H PRN 10/13/22 10/13/22 Unknown History (0.083 %) solution for nebulization Shortness Of Breath amoxicillin 875 mg-potassium 1 tab PO BID PNA 10/13/22 10/13/22 10/13/22 History clavulanate 125 mg tablet aspirin 81 mg chewable tablet 81 mg PO DAILY 10/13/22 10/13/22 10/13/22 History atorvastatin 10 mg tablet 10 mg PO BEDTIME 10/13/22 10/13/22 10/12/22 History azithromycin 250 mg tablet 250 mg PO DAILY 10/13/22 10/13/22 Unknown History cholecalciferol (vitamin D3) 25 25 mcg PO DAILY 10/13/22 10/13/22 10/13/22 History mcg (1,000 unit) tablet duloxetine 40 mg capsule,delayed 40 mg PO DAILY 10/13/22 10/13/22 10/13/22 History release ferrous sulfate 325 mg (65 mg 325 mg PO DAILY 10/13/22 10/13/22 10/13/22 History iron) tablet levocetirizine 5 mg tablet 5 mg PO QPM 10/13/22 10/13/22 10/12/22 History lisinopril 5 mg tablet 5 mg PO DAILY 10/13/22 10/13/22 10/13/22 History tamsulosin 0.4 mg capsule 0.4 mg PO BEDTIME 10/13/22 10/13/22 10/12/22 History Physical Exam Vital Signs: Vital Signs: Last Vital Signs Temp 96.8 F 10/22/22 11:36 Pulse 94 10/22/22 11:39 Resp 22 H 10/22/22 11:44 BP 100/62 10/22/22 11:36 Pulse Ox 92 10/22/22 11:36 O2 Del Method High Flow Nasal C annula, Non-Rebrea ther Mask 10/22/22 11:36 O2 Flow Rate 55 10/22/22 11:36 FiO2 100 10/22/22 11:36 Oxygen Flow Rate 15 10/13/22 16:20 BMI result Body Mass Index 26.7 Const: General: no acute distress and lethargic ( arousable) Orientation/consciousness: lethargic ( arousable) Eyes: Sclerae: sclerae normal EOM: EOMs intact bilaterally Neck: Neck: Yes no lymphadenopathy, Yes trachea midline and Yes supple Resp: Effort & Inspection: normal respiratory effort ( on high-flow nasal cannula) and no respiratory distress Auscultation: rales ( diffuse bilateral) Cardio: Rate: regular rate Rhythm: regular rhythm Heart sounds: no gallops, no murmurs and no rubs GI: Palpation (GI): Soft to palpation and Other GI palpation findings present ( Nontender) Auscultation: normal bowel sounds Skin: General skin exam: dry skin Extrem: General: Yes no pedal edema, No clubbing and No cyanosis Results Laboratory Findings 10/22/22 06:12 10/22/22 06:12 ABG, PT/INR, D-dimer: PT/INR, D-dimer PT 16.5 SEC (11.1-13.3) H 10/13/22 17:02 INR 1.4 (0.9-1.1) H 10/13/22 17:02 Abnormal lab findings: Abnormal Labs 10/13/22 10/13/22 10/13/22 16:41 16:41 17:01 WBC 11.7 H RBC Hct MCV Immature Gran % (Auto) 1.2 H Neut % (Auto) 87.5 H Lymph % (Auto) 7.9 L Lymph # (Auto) 0.9 L Abs Immat Gran (auto) 0.14 H Absolute Neuts (auto) 10.2 H Absolute Nucleated RBC PT INR VBG pH VBG HCO3 Sodium Chloride Carbon Dioxide Anion Gap BUN 26 H Creatinine Random Glucose 118 H Fasting Glucose Lactic Acid 2.5 H* Total Bilirubin 1.2 H AST 75 H Albumin 3.2 L 10/13/22 10/13/22 10/14/22 17:02 17:07 07:45 WBC 14.2 H RBC Hct MCV Immature Gran % (Auto) 0.8 H Neut % (Auto) 89.7 H Lymph % (Auto) 7.3 L Lymph # (Auto) 1.0 L Abs Immat Gran (auto) 0.11 H Absolute Neuts (auto) 12.8 H Absolute Nucleated RBC PT 16.5 H INR 1.4 H VBG pH 7.55 H VBG HCO3 Sodium Chloride Carbon Dioxide Anion Gap BUN Creatinine Random Glucose Fasting Glucose Lactic Acid Total Bilirubin AST Albumin 10/14/22 10/14/22 10/15/22 07:45 07:51 08:31 WBC 17.0 H RBC Hct MCV Immature Gran % (Auto) Neut % (Auto) Lymph % (Auto) Lymph # (Auto) Abs Immat Gran (auto) Absolute Neuts (auto) Absolute Nucleated RBC PT INR VBG pH 7.31 L VBG HCO3 Sodium Chloride Carbon Dioxide Anion Gap BUN 23 H Creatinine Random Glucose Fasting Glucose Lactic Acid Total Bilirubin AST Albumin 10/15/22 10/16/22 10/16/22 09:55 07:38 07:38 WBC 14.9 H RBC 4.55 L Hct MCV Immature Gran % (Auto) Neut % (Auto) Lymph % (Auto) Lymph # (Auto) Abs Immat Gran (auto) Absolute Neuts (auto) Absolute Nucleated RBC PT INR VBG pH VBG HCO3 Sodium Chloride 110 H Carbon Dioxide 20 L 21 L Anion Gap BUN 38 H 44 H Creatinine Random Glucose Fasting Glucose 127 H 124 H Lactic Acid Total Bilirubin AST Albumin 10/20/22 10/20/22 10/21/22 07:44 07:44 07:25 WBC 19.3 H 24.9 H RBC Hct 52.4 H 53.1 H MCV 100.6 H 98.3 H Immature Gran % (Auto) Neut % (Auto) Lymph % (Auto) Lymph # (Auto) Abs Immat Gran (auto) Absolute Neuts (auto) Absolute Nucleated RBC PT INR VBG pH VBG HCO3 Sodium 150 H Chloride Carbon Dioxide 30 H Anion Gap BUN 51 H Creatinine Random Glucose Fasting Glucose 126 H Lactic Acid Total Bilirubin AST Albumin 10/21/22 10/21/22 10/21/22 07:25 13:40 18:39 WBC RBC Hct MCV Immature Gran % (Auto) Neut % (Auto) Lymph % (Auto) Lymph # (Auto) Abs Immat Gran (auto) Absolute Neuts (auto) Absolute Nucleated RBC PT INR VBG pH VBG HCO3 Sodium 147 H 147 H 146 H Chloride Carbon Dioxide 18 L Anion Gap 21 H 26 H BUN 47 H 50 H 52 H Creatinine 1.48 H Random Glucose 130 H 168 H Fasting Glucose 126 H Lactic Acid Total Bilirubin AST Albumin 10/21/22 10/22/22 10/22/22 18:42 06:12 06:12 WBC 30.4 H* RBC Hct 53.0 H MCV 99.1 H Immature Gran % (Auto) Neut % (Auto) Lymph % (Auto) Lymph # (Auto) Abs Immat Gran (auto) Absolute Neuts (auto) Absolute Nucleated RBC 0.020 H PT INR VBG pH 7.44 H VBG HCO3 20 L Sodium 150 H Chloride Carbon Dioxide Anion Gap BUN 70 H Creatinine 1.86 H Random Glucose 119 H Fasting Glucose Lactic Acid Total Bilirubin AST Albumin Microbiology: Microbiology 10/13/22 17:01 Blood - Venous Blood Culture - Final No growth after 5 days. 10/13/22 16:41 Blood - Venous Blood Culture - Final No growth after 5 days. Assessment and Plan (1) Pulmonary aspiration: Status: Acute (2) Dysphagia: Status: Acute (3) Respiratory failure: Status: Acute Plan Impression: 87-year-old gentleman with underlying dementia, dysphagia coma and AFib admitted with progressive weakness and dyspnea with hospital course significant for further hypoxemia with what appears to be a chronic recurrent pulmonary aspiration and adult failure to thrive. Recommendations: Hypoxemia apears to be related to recurrent chronic aspiration with only clinical option being discussion of a possible PEG placement that would not prevent, but may diminish underlying aspiration and prove nutrition. Agree with empiric coverage for aspiration pneumonitis. Consider discussion of goals of care. Time Spent With Patient Time: Total time managing care of this patient today ____ minutes. Procedures Date of Service Date of Service: 10/22/22
[2022-10-22] MEDS: methylPREDNISolone Sod Succ 125 MG/2 ML VIAL 40 MG IVPUSH ×2 (15:20→20:53)
[2022-10-22] MEDS: cefTRIAXone sodium 1 GM in 0.9 % Sodium Chloride 50 ML IV (15:21)
[2022-10-22 16:02] LABS: Anion Gap 18 (12-20); Blood Urea Nitrogen 66 mg/dL (9-16); Carbon Dioxide 20 mmol/L (22-29); Chloride 112 mmol/L (96-108); Creatinine Clr Calc Pharmacy 39.1; Estimated Glomerular Filt Rate 46; Glucose Random 156 mg/dL (60-115); Potassium 5.7 mmol/L (3.3-5.1); Sodium 144 mmol/L (135-145)
[2022-10-22] MEDS: Atorvastatin Calcium 10 MG TABLET PO (20:50)
[2022-10-22] MEDS: Tamsulosin HCL 0.4 MG CAPSULE PO (20:53)
[2022-10-22] MEDS: Morphine Sulfate 4 MG/ML CARTRIDGE IVPUSH (21:28)
[2022-10-22] MEDS: 0.9 % Sodium Chloride Flush 3 ML SYRINGE IVFLUSH (21:28)
--- NOTE | 2022-10-22 21:29 | P.EN_ITS ---
Event Note Date of Service: 10/22/22 Event Note: Patient hypoxic in the 60s, tachypneic, tachycardic in the heart rate 120s, blood pressure 90s over 50s. Patient is awake, when I asked how he is doing said he is tired. Difficult to get a good pulse ox from him as his fingers are turning purple. Spoke to the as well as the son over the phone, they are not completely sure if they want to make him comfort measures only, they are aware of the poor prognosis. I did discuss the need for morphine for respir atory distress as patient appears uncomfortable, and they agree to give the morphine. I did discuss in detail that morphine may accelerate his passing as he may drop the blood pressure, son as well as both understand this and agree to p.r.n. morphine this time for respiratory distress. Time Spent With Patient Time: Total time managing care of this patient today ____ minutes.
[2022-10-23] VITALS (16 sets, daily range): BP systolic 74–108; BP diastolic 42–71; PULSE 88–120; RESP 0–22; TEMP 36.1–36.4; O2SAT 89–94; BMI 27.2
[2022-10-23] MEDS: Haloperidol Lactate 5 MG/ML VIAL IM (00:47)
[2022-10-23] MEDS: Morphine Sulfate 4 MG/ML CARTRIDGE IVPUSH ×4 (02:49→21:29)
[2022-10-23] MEDS: Dextrose 5 % 1,000 ML 150 ML IVCONT ×2 (02:50→09:43)
[2022-10-23] MEDS: methylPREDNISolone Sod Succ 125 MG/2 ML VIAL 40 MG IVPUSH ×3 (02:50→16:46)
--- NOTE | 2022-10-23 06:28 | PC.NURSE ---
Assumed care 1900. Patient continues on HFNC 55LPM/100% as well as overlying NRB overnight. Pt hypoxic in evening lowest noted mid/upper 60's with minimal exertion, slow to recover. Difficult to obtain accurate spo2 at times as pt's finger tips noted to be purple with some mottling noted in hands/BUE, extremities cool. Pt also tachycardic 110-120's. Covering Dr. Taylor notified of assessment findings and presented to bedside as requested for respiratory distress. Pt awake and arousable to voice. A/Ox1 to self, confused but answering home assessment nurse questions in short responses. Continues with D5W infusing as ordered. Family called and updated by MD, family agreeable to morphine for respiratory effort. Morphine as well as 1x IM haldol given with +effect, pt looking more at ease and comfortable. Warm blankets provided. Pt's and son allowed to come in overnight to see patient, stayed for an hour or so. Discussion on pt's condition and discomfort related to respiratory status reinforced with family by va underwriter and nursing air crew supervisor at bedside; patient's son and reaffirmed and voicing they would like to continue with current oxygen therapy and prn morphine, expressed gratitude for care. Handoff report given 0645 10/23.
[2022-10-23 06:35] LABS: Hematocrit 49.3 % (42.0-52.0); Hemoglobin 16.6 g/dl (14.0-18.0); Mean Corpuscular HGB Conc 33.7 g/dl (31.0-36.0); Mean Corpuscular Hemoglobin 32.6 pg (27.0-33.0); Mean Corpuscular Volume 96.9 fL (80.0-98.0); Mean Platelet Volume 11.4 fL (9.4-12.4); NRBC Pct Auto 0.1 /100WBC (0.0-0.2); Platelet Count 202 X10*3/uL (160-400); Red Blood Count 5.09 X10*6/uL (4.60-5.80); Red Cell Distribution Width 13.2 % (11.0-16.0)
[2022-10-23 06:52] LABS: Anion Gap 18 (12-20); Blood Urea Nitrogen 62 mg/dL (9-16); Calcium 8.6 mg/dL (8.4-10.2); Carbon Dioxide 23 mmol/L (22-29); Chloride 103 mmol/L (96-108); Creatinine Clr Calc Pharmacy 38.3; Estimated Glomerular Filt Rate 45; Glucose Random 156 mg/dL (60-115); Potassium 4.7 mmol/L (3.3-5.1); Sodium 139 mmol/L (135-145)
[2022-10-23] MEDS: Albuterol/Iprat 2.5/0.5MG 3 ML AMPUL.NEB INHALE ×4 (07:38→19:43)
[2022-10-23 07:43] LABS: White Blood Count 34.2 X10*3/uL (4.8-10.8)
--- NOTE | 2022-10-23 08:04 | P.CDIM_ITS ---
PROVIDER RESPONSE TEXT: To clarify, the appropriate diagnosis supported by the clinical indicators: Dilated cardiomyopathy QUERY TEXT: PHYSICIAN'S DOCUMENTATION REQUEST Date of Query: 10/22/2022 09:19 AM EDT Patient Name: Mohsen Arreola Admit Date: 10/14/2022 Dear Cosme Rivera, A review of the medical record indicates additional documentation may be needed. Please review below and update the documentation accordingly. Clinical Indicators: Cardiology - Echocardiography performed which has shown cardiomyopathy with severe LV dysfunction. He does have cardiomyopathy which can be due to sepsis. Based on the above, could you clarify specifics to cardiomyopathy: Dilated cardiomyopathy Ischemic cardiomyopathy Non-ischemic cardiomyopathy Hypertensive cardiomyopathy Other please specify Other (explain)Clinically unable to determine (explain)Thank you, Jodie Vyas, CCS, CDIS Use of terms such as suspected, likely, concern for, or probable (associated with a specific diagnosi s that is being evaluated, monitored, or treated as if it exists) are acceptable and can be coded in the inpatient se tting, when documented at the time of discharge. Please use your independent medical judgment in providing your response. THIS QUERY IS PART OF THE PERMANENT MEDICAL RECORD
[2022-10-23] MEDS: Ferrous Sulfate 324 MG TABLET.DR PO (09:35)
[2022-10-23] MEDS: 0.9 % Sodium Chloride Flush 3 ML SYRINGE IVFLUSH ×2 (09:54→16:46)
--- NOTE | 2022-10-23 12:12 | HO.PM.IMPN ---
Subjective Subjective Date of Service: 10/23/22 Interval History: Seen and evaluated this morning more lethargic and winded Still on High flow oxygen and NRB improved sodium levels and Creatinine Not eating much, not drinking much prognosis guarded Review of Systems Review of Systems: Yes all other systems are reviewed and are negative Physical Exam Vital Signs: Vital Signs: Last Vital Signs Temp 96.9 F 10/23/22 11:24 Pulse 120 H 10/23/22 11:24 Resp 16 10/23/22 11:24 BP 97/71 10/23/22 11:24 Pulse Ox 91 L 10/23/22 11:24 O2 Del Method High Flow Nasal C annula, Non-Rebrea ther Mask 10/23/22 11:24 O2 Flow Rate 15 10/23/22 11:24 FiO2 100 10/23/22 11:24 Oxygen Flow Rate 15 10/13/22 16:20 BMI result Body Mass Index 27.2 Const: Other: Constitutional : Awake, interactive, frail and lethargic, in mod resp distress Neck : Normal inspection, Supple Cardiovascular : RRR, no JVP, trace lower extremity edema Respiratory : fair bilateral air entry, basal bilateral crackles, scattered wheezes , in mod resp distress, on high flow O2 and NRB Gastrointestinal: soft, lax, Normal bowel sounds, Non tender Skin : Warm, Dry Neurological : Alert & disoriented, No focal deficit Objective Data Active Medications Acetaminophen (Acetaminophen 325 Mg Tablet) 650 mg PO Q6H PRN PRN Reason: Pain, Mild (Pain Scale 1-3) Albuterol/Ipratropium (Albuterol/Iprat 2.5/0.5mg 3 Ml Ampul.Neb) 3 ml INHALE RQ4H WHILE AWAKE [facility] Last Admin: 10/23/22 11:09 Dose: 3 ml Documented By: CHRISTINA Apixaban (Apixaban 5 Mg Tablet) 5 mg PO BID [facility] Last Admin: 10/23/22 09:41 Dose: Not Given Documented By: FABIANA Non-Admin Reason: Patient Refused Artificial Tears (Artificial Tears 15 Ml Drops) 2 drop EYE-BOTH Q4H PRN PRN Reason: dry eyes Last Admin: 10/18/22 21:28 Dose: 2 drop Documented By: CIRILO Aspirin (Aspirin 81 Mg Tab.Chew) 81 mg PO DAILY [facility] Last Admin: 10/23/22 09:42 Dose: Not Given Documented By: FABIANA Non-Admin Reason: Patient Refused Atorvastatin Calcium (Atorvastatin Calcium 10 Mg Tablet) 10 mg PO BEDTIME [facility] Last Admin: 10/22/22 20:50 Dose: 10 mg Documented By: MARCI Duloxetine HCl (Duloxetine Hcl 20 Mg Capsule.) 40 mg PO DAILY [facility] Last Admin: 10/23/22 09:42 Dose: Not Given Documented By: FABIANA Non-Admin Reason: Patient Refused Empagliflozin (Empagliflozin 10 Mg Tablet) 10 mg PO DAILY [facility] Last Admin: 10/21/22 12:16 Dose: 10 mg Documented By: RONAK Ferrous Sulfate (Ferrous Sulfate 324 Mg Tablet.) 324 mg PO DAILY [facility] Last Admin: 10/23/22 09:35 Dose: 324 mg Documented By: FABIANA Guaifenesin (Guaifenesin La 600 Mg Tab.Er.12h) 600 mg PO BID [facility] Last Admin: 10/23/22 09:42 Dose: Not Given Documented By: FABIANA Non-Admin Reason: Patient Refused Ceftriaxone Sodium 1 gm/ (Sodium Chloride) 50 mls @ 100 mls/hr IV Q24H [facility] Last Infusion: 10/22/22 16:42 Dose: 0 mls/hr Documented By: WENDY Azithromycin 500 mg/ Sodium (Chloride) 250 mls @ 125 mls/hr IV Q24H [facility] Last Infusion: 10/22/22 15:26 Dose: 0 mls/hr Documented By: FOSTEKR Dextrose (D5w) 1,000 mls @ 100 mls/hr IVCONT .Q10H [facility] Last Admin: 10/23/22 09:43 Dose: 150 mls/hr Documented By: FABIANA Melatonin (Melatonin 3 Mg Tablet) 6 mg PO BEDTIME PRN PRN Reason: Insomnia Last Admin: 10/17/22 23:59 Dose: 6 mg Documented By: CYNTHIA Methylprednisolone Sodium Succinate (Methylprednisolone Sod Succ 125 Mg/2 Ml Vial) 40 mg IVPUSH Q6H [facility] Last Admin: 10/23/22 09:53 Dose: 40 mg Documented By: FABIANA Morphine Sulfate (Morphine Sulfate 4 Mg/Ml Cartridge) 4 mg IVPUSH Q4H PRN; Protocol PRN Reason: Shortness Of Breath/Wheezing, Last Admin: 10/23/22 09:45 Dose: 4 mg Documented By: FABIANA Olanzapine (Olanzapine 10 Mg Vial) 5 mg IM STAT PRN PRN Reason: anxiety/restlessness Last Admin: 10/16/22 00:22 Dose: 5 mg Documented By: PAUL Ondansetron HCl (Ondansetron Hcl 4 Mg/2 Ml Vial) 4 mg IVPUSH Q8H PRN PRN Reason: Nausea and Vomiting Pharmacy Consult (Consult Rx Perform Med Rec) 1 each MISCELLANE ONCE PRN PRN Reason: Consult order Sodium Chloride (0.9 % Sodium Chloride Flush 3 Ml Syringe) 3 ml IVFLUSH QSHIFT [facility] Last Admin: 10/23/22 09:54 Dose: 3 ml Documented By: FABIANA Tamsulosin HCl (Tamsulosin Hcl 0.4 Mg Capsule) 0.4 mg PO BEDTIME [facility] Last Admin: 10/22/22 20:53 Dose: 0.4 mg Documented By: MARCI Labs 10/23/22 06:04 10/23/22 06:04 Labs: Laboratory Results - last 24 hr 10/22/22 10/23/22 10/23/22 15:00 06:04 06:04 MCV 96.9 MCH 32.6 MCHC 33.7 RDW 13.2 Plt Count 202 D MPV 11.4 Absolute Nucleated RBC 0.020 H Nucleated RBC % (auto) 0.1 Anion Gap 18 18 Estim Creat Clear Calc 39.1 38.3 Estimated GFR 46 45 Random Glucose 156 H 156 H Calcium 8.0 L D 8.6 D Assessment and Plan (1) Pulmonary aspiration: Status: Acute (2) Acute kidney injury: Status: Acute (3) Acute hypernatremia: Status: Acute (4) Respiratory failure: Status: Acute (5) Dysphagia: Status: Acute Plan 87M PMH paroxysmal afib, bph, htn, hld, presented with sob acute metabolic encephalopathy and acute hypoxic respiratory failure due to acute on chronic aspiration pneumonitis with superimposed bacterial pneumonia as well as recent covid 19. Continue rocephin, azithro, steroids on partiabl NRB and max high flow Pulm eval appreciated morphine for dyspnea wean down as tolerated consider comfort measures at this stage acute hypernatreamia Na of 139 restart d5w, monitor bmp JERO Cr of 1.4 this morning IVF encourage PO intake monitor I\O follow BMP dysphagia HOSPITAL PHARMACY TECHNICIAN appreciated NDD2 solids nectar thick Systolic chf ECHO severe LV dysfunction with EF of 15-20%.? Basal inferolateral segment was akinetic. CMP from covid\infection DC iv lasix cardio eval, likely multifactorial, start Jardiance and for OP f\u with cardiology for rest of heart failure meds eval acute small right upper lobe PE doubt significantly contributing to hypoxia eliquis paroxysmal afib lovenox htn lisinopril hld statin bph flomax DNR/DNI Discussed goals of care with his HCP who is thinking about [employer] at this stage. Family will be visiting him this afternoon and will have discussion about the next step of care. reason for continued hospitalization:hypoxia pending clinical improvement\[employer] Time Spent With Patient Time: Total time managing care of this patient today ____ minutes. Quality Stroke Does the patient have a stroke diagnosis?: No VTE Prior VTE?: No VTE Risk Level:: Medical - moderate - high VTE Device Contraindication: Treatment Not Indicated VTE Drug Contraindication: N/A - Med Ordered
--- NOTE | 2022-10-23 12:14 | MHC.CM.PN ---
EMR reviewed and per MD rounds, pt is not medically cleared for D/C due to continued hypoxia, requiring hi-flow O2, and pts overall condition/prognosis remaining poor. 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 CM will continue to follow.
[2022-10-23] MEDS: Azithromycin 500 MG in 0.9 % Sodium Chloride 250 ML 125 MG IV (13:05)
--- NOTE | 2022-10-23 13:52 | MHC.SLORD ---
Addendum entered and electronically signed by Julia Bajwa MA, CCC-M[employer] GRADER 10/23/22 14:17: 2nd attempt this afternoon- Pt still not waking to sternal rub. No PO trials given. Original Note: Speech Language Pathology Order Status: [employer] GRADER attempted to see pt this morning for dysphagia tx. Pt was sleeping, open mouth posture, still w/ HFNC and NRB. Pt did not wake to sternal rub. Not appropriate at this time for PO trials d/t lethargic state.
[2022-10-23] MEDS: cefTRIAXone sodium 1 GM in 0.9 % Sodium Chloride 50 ML IV (16:44)
--- NOTE | 2022-10-23 16:51 | PC.NURSE ---
MD called to the bedside at 1300for increased WOB. Patient appeared to have agonal breathing despite being on high flow nasal cannula and a non-rebreather. Physician instructed to give next dose of PRN morphine early. MD to discuss goals of care with family. Will continue to monitor.
[2022-10-23] MEDS: Dextrose 5 % 1,000 ML 100 ML IVCONT (19:46)
--- NOTE | 2022-10-23 20:41 | PM.EVENT ---
Event Note Date of Service: 10/23/22 Event Note: Son eder who is the HCP per documentation is at bedside along with his brother and son. Now ready to make pt SURGICAL INSTRUMENT TECHNICIAN. SURGICAL INSTRUMENT TECHNICIAN orders placed. Pt will be taken off oxygen. Time Spent With Patient Time: Total time managing care of this patient today ____ minutes.
[2022-10-23] MEDS: LORazepam 2 MG/ML VIAL 0.5 MG IVPUSH (21:30)
--- NOTE | 2022-10-23 23:18 | PM.EVENT ---
Event Note Date of Service: 10/23/22 Event Note: pt expred at 10:30 pm with sons at bedside. certificate completed Time Spent With Patient Time: Total time managing care of this patient today ____ minutes.
--- NOTE | 2022-10-23 23:48 | PC.NURSE ---
At approximately 2100, hospitalist met with health care proxy and next of kin to discuss code status change - family agreed to comfort measures only. Family agreed to removal of modes of oxygen delivery and understood patient would in a short time after removal. Pt medicated with morphine and ativan per MAY approx 30 minutes prior to removal of HFNC and PNRB. At 2205, RT to bedside to assist RN in removal of oxygen. Family at bedside with patient. Time of 2229
--- NOTE | 2022-10-24 12:35 | P.DS_ITS ---
DS: Providers Provider Date of Service: 10/23/22 Date of admission: 10/13/22 20:05 Primary care physician: LEVI ARAMBULA DO Consults: 10/19/22 09:18 Consult to Cardiology Routine Consulting Provider[place] [facility] Reason for consultation: new reduced EF 10/21/22 17:02 Consult to Pulmonology Routine Consulting Provider: [facility] Reason for consultation: Post Covid hypoxia, Increase oxygen requirement. DS: Diagnosis Discharge Diagnosis (1) Pulmonary aspiration: Status: Acute (2) Acute kidney injury: Status: Acute (3) Acute hypernatremia: Status: Acute (4) Respiratory failure: Status: Acute (5) Dysphagia: Status: Acute (6) Cardiomyopathy: Status: Acute (7) Hypoxia: Status: Acute DS: Summary Hospital Course Hospital Course: Admission note HPI This is a 87-year-old male with pertinent history of atrial fibrillation not on anticoagulation, BPH, essential hypertension, mixed hyperlipidemia who was sent to the emergency department for evaluation of hypoxemia.? Patient was admitted with COVID-19 hypoxemia on 10/06 to [facility] and was transferred [facility] for increased weakness.? Patient was found to be hypoxemic at [facility] and was sent to the ER for further evaluation.? Patient is a poor historian and unable to provide any history.? History obtained from ER provider and chart review.? Patient had a cough and low-grade fever and was started on Augmentin and Zithromax yesterday.? He denies any complaints at the time of my evaluation.? Does have baseline dementia.? Unable to obtain review of systems. Hospital course The patient has prolonged hospital stay. for full details please return to EMR. In summary, The patient presented with hypoxia post recent Covid 19 infection and his inpatient stay was complicated with acute metabolic encephalopathy and acute hypoxic respiratory failure due to acute on chronic aspiration pneumonitis with superimposed bacterial pneumonia as well as recent covid 19. treated with rocephin, azithro, steroids but Oxygen requirments built up to full NRB and max high flow on 100% O2 50L with increase lethargy and altered mentation complicated by acute hypernatreamia which was treated with D5W with good response but the patient was not eating and high risk of aspiration. as he was evaluated by pulmonology. Developed JERO as well. dysphagia METAL GRADER recommended NDD2 solids nectar thick ECHO showed severe LV dysfunction with EF of 15-20%.? Basal inferolateral segment was akinetic. CMP likely from from covid\infection as he was seen by cardiology. 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 The patient at 10:30 PM. Time Spent with Patient Time attestation: Total time managing care of this patient today ____ minutes. Discharge coordination time: Greater than 30 minutes Quality: Safe Use of Opioids Does Pt have an Active Cancer Diagnosis on the Problem List?: No Quality: Stroke Does the patient have a stroke diagnosis?: No Physical Exam Vital Signs: Vital Signs: Last Vital Signs Temp 97.6 F 10/23/22 15:16 Pulse 88 10/23/22 19:47 Resp 11 L 10/23/22 19:47 BP 74/42 L 10/23/22 15:16 Pulse Ox 92 10/23/22 19:47 O2 Del Method High Flow Nasal C annula 10/23/22 19:47 O2 Flow Rate 55 10/23/22 19:47 FiO2 100 10/23/22 19:47 Oxygen Flow Rate 15 10/13/22 16:20 BMI result Body Mass Index 27.2 Const: Other: Discharge Plan Discharge Patient Disposition: Discharge Diagnosis: Referrals: LEVI ARAMBULA [Primary Care Provider] - 1 Week Discharge Medications: No Action albuterol sulfate 2.5 mg /3 mL (0.083 %) Solution For Nebulization 2.5 mg INHALATION Q6H PRN (Reason: Shortness Of Breath) atorvastatin 10 mg Tablet 10 mg PO BEDTIME azithromycin 250 mg Tablet 250 mg PO DAILY Rx Instructions: finished 10/16/22 acetaminophen 500 mg Tablet 500 mg PO Q6H PRN (Reason: Pain) tamsulosin 0.4 mg Capsule 0.4 mg PO BEDTIME ferrous sulfate 325 mg (65 mg iron) Tablet 325 mg PO DAILY aspirin 81 mg Tablet,Chewable 81 mg PO DAILY lisinopril 5 mg Tablet 5 mg PO DAILY amoxicillin-pot clavulanate [Augmentin] 875-125 mg Tablet 1 tab PO BID Rx Instructions: finish 10/16/22 cholecalciferol (vitamin D3) 25 mcg (1,000 unit) Tablet 25 mcg PO DAILY levocetirizine 5 mg Tablet 5 mg PO QPM duloxetine 40 mg Capsule,Delayed Release(Dr/Ec) 40 mg PO DAILY Discharge Orders: Discharge Order (Routine); Ordered 10/24/22 Ordered By: Amaya Taylor Discharge Date/Time: 10/23/22 22:30
== END 2022-10-23 22:30 | disposition expired | DRG 177 ==
LOC: HO.ED 20:11 → HO.EDOVER 20:18 → HO.IMC 20:34
PROVIDERS: Internal Medicine; Admitting Provider Student in an Organized Health Care Education/Training Program; Emergency Provider Internal Medicine; PCP Internal Medicine; Visit Provider Student in an Organized Health Care Education/Training Program
DX: J69.0 Pneumonitis due to inhalation of food and vomit (principal); G93.41 Metabolic encephalopathy; J96.01 Acute respiratory failure with hypoxia; I26.99 Other pulmonary embolism without acute cor pulmonale; I50.21 Acute systolic (congestive) heart failure; E87.0 Hyperosmolality and hypernatremia; N17.9 Acute kidney failure, unspecified; I42.0 Dilated cardiomyopathy; I48.0 Paroxysmal atrial fibrillation; J15.9 Unspecified bacterial pneumonia; N40.0 Benign prostatic hyperplasia without lower urinary tract symptoms; Z51.5 Encounter for palliative care; Z66 Do not resuscitate; I11.0 Hypertensive heart disease with heart failure; I95.9 Hypotension, unspecified; D72.829 Elevated white blood cell count, unspecified; T38.0X5A Adverse effect of glucocorticoids and synthetic analogues, initial encounter; R13.10 Dysphagia, unspecified; U09.9 Post COVID-19 condition, unspecified; F03.90 Unspecified dementia, unspecified severity, without behavioral disturbance, psychotic disturbance, mood disturbance, and anxiety; E78.2 Mixed hyperlipidemia; F39 Unspecified mood [affective] disorder; Z20.822 Contact with and (suspected) exposure to COVID-19; Z79.82 Long term (current) use of aspirin; Z79.899 Other long term (current) drug therapy
CPT/HCPCS: 36415; 71045; 71275; 80048; 80053; 82803; 83605; 83735; 83880; 84484; 85025; 85027; 85379; 85610; 87040; 87635; 92507; 92610; 93005; 93306; 94640; 99285; C1758; J0456; J0696; J1100; J1650; J1940; J2060; J2270; J2930; P9047; Q9957; Q9967

== ENCOUNTER → 2022-10-13 16:34 | Outpatient (BNV) | payer MEDICARE, SELFPAY | PROVIDERS: Emergency Provider Internal Medicine; Visit Provider Student in an Organized Health Care Education/Training Program | DX: J96.01 Acute respiratory failure with hypoxia (principal); I42.9 Cardiomyopathy, unspecified; N17.9 Acute kidney failure, unspecified; T17.900A Unspecified foreign body in respiratory tract, part unspecified causing asphyxiation, initial encounter; E87.0 Hyperosmolality and hypernatremia; R13.10 Dysphagia, unspecified | CPT/HCPCS: 99222; 99233; 99238; 99499 ==

== ENCOUNTER → 2022-10-13 16:35 | Outpatient (BNV) | payer MEDICARE, SELFPAY | PROVIDERS: Admitting Provider Student in an Organized Health Care Education/Training Program; Emergency Provider Internal Medicine; Visit Provider Internal Medicine | DX: I48.91 Unspecified atrial fibrillation (principal) | CPT/HCPCS: 93010 ==

== ENCOUNTER 2022-10-13 20:05 | Outpatient (BNV) | payer MEDICARE, SELFPAY | END 2022-10-14 07:00 | PROVIDERS: Admitting Provider Student in an Organized Health Care Education/Training Program; Emergency Provider Internal Medicine; Visit Provider Internal Medicine | DX: I35.8 Other nonrheumatic aortic valve disorders (principal); I34.0 Nonrheumatic mitral (valve) insufficiency | CPT/HCPCS: 93306 ==

== ENCOUNTER → 2022-10-13 20:05 | Outpatient (BNV) | payer MEDICARE, SELFPAY | PROVIDERS: Admitting Provider Student in an Organized Health Care Education/Training Program; Emergency Provider Internal Medicine; PCP Internal Medicine; Visit Provider Internal Medicine Pulmonary Disease | DX: T17.900A Unspecified foreign body in respiratory tract, part unspecified causing asphyxiation, initial encounter (principal); R13.10 Dysphagia, unspecified; J96.90 Respiratory failure, unspecified, unspecified whether with hypoxia or hypercapnia | CPT/HCPCS: 99232 ==

== ENCOUNTER → 2022-10-13 20:05 | Outpatient (BNV) | payer MEDICARE, SELFPAY | PROVIDERS: Admitting Provider Student in an Organized Health Care Education/Training Program; Emergency Provider Internal Medicine; PCP Internal Medicine; Visit Provider Internal Medicine Cardiovascular Disease | DX: I42.9 Cardiomyopathy, unspecified (principal); J96.90 Respiratory failure, unspecified, unspecified whether with hypoxia or hypercapnia | CPT/HCPCS: 99223 ==